=== PATIENT | male | born 1945 | race Caucasian/White ===

== ENCOUNTER 2016-12-23 09:38 | Inpatient (IN) | payer OTHER ==
[2016-12-08 14:58] VITALS: BMI 32.0
--- NOTE | 2016-12-08 15:37 | PAT Medication Instructions ---
Service Date Dec 08, 2016. Current Home Medication List Aspirin (Aspirin Ec), 325 MG PO HS Aspirin (Aspirin Ec), 81 MG PO HS Atorvastatin (Lipitor), 1 TAB PO HS Cholecalciferol (Vitamin D3), 1 TAB PO HS Metoprolol Succinate (Toprol Xl), 1 TAB PO HS Nitroglycerin (Nitrostat), 1 TAB SL UD Medication Instructions For Your Scheduled Surgery - Continue as directed: Nitroglycerin (Nitrostat), 1 TAB SL UD - Hold the following medications 10 days prior to surgery: Aspirin (Aspirin Ec), 325 MG PO HS Aspirin (Aspirin Ec), 81 MG PO HS - Take the following medications as scheduled the night before surgery: Atorvastatin (Lipitor), 1 TAB PO HS Cholecalciferol (Vitamin D3), 1 TAB PO HS Metoprolol Succinate (Toprol Xl), 1 TAB PO HS Nothing to eat or drink after midnight. No chewing after midnight If you have any questions please call us at [phone] or [phone] or [phone]
[2016-12-08 16:55] LABS: URINE APPEARANCE CLEAR (CLEAR); URINE BILIRUBIN NEG (NEG); URINE COLOR YELLOW; URINE NITRITE NEG (NEG); URINE SPECIFIC GRAVITY 1.008 (1.000-1.030); UROBILINOGEN NEG (NEG)
[2016-12-08 17:13] LABS: MANUAL MICROSCOPIC REQUIRED? NO; REVIEW REQ? NO
[2016-12-23] VITALS (7 sets, daily range): BP systolic 105–132; BP diastolic 74–91; PULSE 61–89; TEMP 36.4–36.6; O2SAT 91–98; Ht 177.8 cm; Wt 102.2 kg
[~2016-12-23] VITALS: Ht 177.8 cm; Wt 102.2 kg
[~2016-12-23 09:38] MED LIST: ASPI325T39 PO; ASPI81TA28 PO; ATOR-22 PO; CHOL1000 PO; HEPARIN SOD 5000 UNIT/0.5 ML CARP SQ SCH; LACTATED RINGER'S 1000ML 1,000 ML IV SCH; METO1TAB31 PO; NTRGSL/4 SL; VANCOMYCIN 1GM/270ML NSS IV SCH
[2016-12-23] MEDS ORDERED: LACTATED RINGER'S 1000ML 1,000 ML IV PRN (12:11)
[2016-12-23] MEDS ORDERED: ONDANSETRON INJ 2 MG/ML 2 ML VIAL IV PRN ×2 (12:15→17:15)
--- NOTE | 2016-12-23 12:52 | History & Physical Bridge Note ---
H&P Re-Evaluation Bridge Note: I have examined the patient, reviewed the History & Physical and in the interval since the performance of the History & Physical I have noted the following changes of clinical significance: No changes noted
[2016-12-23] MEDS ORDERED: BUPIVACAINE 0.5 % 5 MG/1 ML MPF 30ML VIAL ONE (13:14)
[2016-12-23] MEDS ORDERED: MIDAZOLAM HCL 1 MG/ML 2ML VIAL ONE (13:18)
[2016-12-23] MEDS ORDERED: FENTANYL CITRATE INJ 50 MCG/1 ML 2 ML VIAL ONE ×2 (13:18→14:22)
[2016-12-23] MEDS ORDERED: NEOSTIGMINE METHYLSULFATE 5 MG/5 ML SYR ONE (14:28)
[2016-12-23] MEDS ORDERED: GLYCOPYRROLATE INJ 0.2 MG/ML VIAL ONE ×2 (14:28→15:10)
[2016-12-23] MEDS ORDERED: ONDANSETRON INJ 2 MG/ML 2 ML VIAL ONE (14:28)
[2016-12-23] MEDS ORDERED: PROPOFOL IV EMULSION 10 MG/ML 20 ML VIAL IV ONE (14:28)
[2016-12-23] MEDS ORDERED: ROCURONIUM BROMIDE 10 MG/ML 5 ML VIAL ONE ×2 (14:28→15:09)
[2016-12-23] MEDS ORDERED: LIDOCAINE HCL 2% 2 ML VIAL (20MG/ML) ONE (14:28)
[2016-12-23] MEDS ORDERED: DEXAMETHASONE SOD INJ 4 MG/ML VIAL ONE (14:28)
[2016-12-23] MEDS ORDERED: MoRPHine SULFATE 2 MG/ML CARP ONE ×2 (14:59→16:19)
[2016-12-23] MEDS ORDERED: FLOSEAL HEMOSTATIC MATRIX 10ML TOP ONE (16:13)
[2016-12-23] MEDS: FENTANYL CITRATE INJ 50 MCG/1 ML 2 ML VIAL IV PRN ×4 (17:07→17:22)
[2016-12-23] MEDS ORDERED: DOCU-94 PO (17:11)
[2016-12-23] MEDS ORDERED: OXYC7.5T65 PO (17:11)
[2016-12-23] MEDS ORDERED: OXYB5TAB74 PO (17:11)
[2016-12-23] MEDS ORDERED: CIPR1TAB10 PO (17:11)
--- NOTE | 2016-12-23 17:14 | Discharge Instructions ---
Discharge Instructions Admission Reason for Admission: Prostate Cancer Discharge Discharge Diagnosis / Problem: Prostate Cancer Discharge Goals Goal(s): Decrease discomfort, Improve disease control, Improve nutritional status, Diagnostic testing, Therapeutic intervention Activity Recommendations Activity Limitations: per Instructions/Follow-up section Shower/Bathe: tomorrow . Instructions / Follow-Up Instructions / Follow-Up 1. Do not lift >15lbs x 6 weeks. 2. No heavy exercise x 6 weeks. You may engage in light activity such as walking and stairs as tolerated. 3. No sexual intercourse until cleared by Dr. Yan or Dr. Conklin. 4. Do not drive x [address] while taking narcotics. 5. Finish all of the antibiotic you have been prescribed. 6. Immediately call our office at [phone] if your catheter is removed for any reason. 7. Follow-up as scheduled. Please call our office at [phone] if you need to reschedule for any reason. . Current Hospital Diet Hospital Diet(s): Clear Liquid Diet Discharge Diet Recommended Diet: Regular Diet Procedures Procedures Performed: Robotic-assisted laparoscopic radical retropubic prostatectomy with bilateral pelvic lymph node dissection Pending Studies Studies pending at discharge: yes (Prostate pathology) List of pending studies: Prostate pathology Medical Emergencies . Who to Call and When: Medical Emergencies: If at any time you feel your situation is an emergency, please call 911 immediately. . Non-Emergent Contact Non-Emergency issues call your: Urologist Call Non-Emergent contact if: temperature is above 101.5, your pain is not controlled, your pain is worsening, your pain is unusual for you, your pain is concerning you, you have any medication questions . . "Provider Documentation" section prepared by Janeth Edwards. VTE Core Measure Inpt VTE Proph given/why not?: Unfractionated heparin SQ, SCD's [place] Drug Monitoring Program Search Results: patient reviewed within database, no issues identified
[2016-12-23] MEDS ORDERED: HYDROmorphone INJ 1 MG/ML SYR IV PRN (17:15)
[2016-12-23] MEDS ORDERED: OXYBUTYNIN CHLORIDE 5 MG TAB PO PRN (17:15)
[2016-12-23] MEDS ORDERED: NITROGLYCERIN 0.4 MG SL PER TAB CHARGE SL SCH (17:15)
[2016-12-23] MEDS ORDERED: OXYCODONE/ACETAMINOPHEN 7.5-325 TAB PO PRN (17:15)
[2016-12-23] MEDS ORDERED: KETOROLAC TROMETHAMINE 15 MG/ML VIAL IV PRN (17:15)
[2016-12-23] MEDS: MoRPHine SULFATE 10 MG/ML CARP/VIAL IV PRN ×2 (17:25→17:30)
--- NOTE | 2016-12-23 17:25 | Anesthesiology Progress Note ---
Anesthesia Post Op Note Date & Time Dec 23, 2016 at 17:25 Vital Signs Pain Intensity: 4 Vital Signs Past 12 Hours Date Time Temp Pulse Resp B/P Pulse Ox O2 Delivery O2 Flow Rate FiO2 12/23/16 17:24 Nasal Cannula 3 12/23/16 16:56 36.4 61 18 122/79 97 Mask 10 12/23/16 10:00 36.5 89 20 132/91 95 Room Air Notes Mental Status: alert / awake / arousable, participated in evaluation Pt Amnestic to Procedure: Yes Nausea / Vomiting: adequately controlled Pain: adequately controlled Airway Patency, RR, SpO2: stable & adequate BP & HR: stable & adequate Hydration State: stable & adequate Anesthetic Complications: no major complications apparent
[2016-12-23 17:33] LABS: MEAN CELL VOLUME 92.7 fL (80-100); MEAN PLATELET VOLUME 11.7 fL (7.4-10.4); PLATELET COUNT 148 K/uL (130-400); RED BLOOD COUNT 5.07 M/uL (4.7-6.1); WHITE BLOOD COUNT 7.99 K/uL (4.8-10.8)
[2016-12-23 17:34] LABS: MEAN CORPUSCULAR HGB CONC 34.5 g/dl (32-36)
[2016-12-23 18:07] LABS: BUN/CREATININE RATIO 13.4 (10-20); CALCIUM 8.6 mg/dl (8.5-10.1); CREATININE 1.1 mg/dl (0.60-1.40); POTASSIUM 4.3 mmol/L (3.5-5.1)
--- NOTE | 2016-12-23 18:11 | [facility] Post Operative Brief Note ---
Immediate Operative Summary Operative Date Dec 23, 2016. Pre-Operative Diagnosis Yonny 4+3 Prostate cancer Post-Operative Diagnosis Same as preop Procedure(s) Performed Robotic-assisted laparoscopic radical retropubic prostatectomy with bilateral pelvic lymph node dissection Surgeon Dr. Yan Coremaker Bench Surgeon(s) ROSANA Moreno Estimated Blood Loss 75 ml Findings Watertight anastomosis, L full nerve sparing, R partial Fluids (cc crystalloids) 1200 cc crystalloid Specimens c. right obturator lymph node d. left obturator lymph node-clip Drains 18 fr silicone reyes, 10 cc H2O, #10 EMMY LLQ Anesthesia GAET + local Complication(s) None Disposition Recovery Room / PACU
[2016-12-23 18:15] LABS: INR 1.1 (0.9-1.1); PARTIAL THROMBOPLASTIN RATIO 1.1
[2016-12-23] MEDS: LACTATED RINGER'S 1000ML 1,000 ML IV SCH (19:20)
[2016-12-23] MEDS: ACETAMINOPHEN 500 MG TAB PO SCH (19:21)
--- NOTE | 2016-12-23 19:35 | OPERATIVE REPORT ---
DATE OF OPERATION: 12/23/2016 PREOPERATIVE DIAGNOSIS: Upgraded clinical T1c, Yonny 4+3 adenocarcinoma previously Yonny 3+3 on active surveillance. POSTOPERATIVE DIAGNOSIS: Same. PROCEDURE: Robot-assisted laparoscopic radical retropubic prostatectomy with bilateral pelvic lymph node dissection. SURGEON: Dr. Apolinar Yan. DESKTOP SUPPORT SPECIALIST: ROSANA Gore. ANESTHESIA: General anesthesia with endotracheal intubation plus local at port sites. ESTIMATED BLOOD LOSS: 75 mL. FLUIDS: 1200 mL crystalloid. FINDINGS: Watertight anastomosis, left full nerve sparing dissection carried out right-sided partial nerve sparing dissection. SPECIMENS SENT TO PATHOLOGY: Periprostatic fat, prostate plus seminal vesicles, right obturator lymph nodes, left obturator lymph node with a clip present. DRAINS LEFT IN PLACE: Include an 18 [place] silicone Vail catheter to gravity drainage, 10 mL of sterile water in the balloon and a #10 EMMY drain in left lower quadrant. COMPLICATIONS: None. BRIEF HISTORY: Mr. Ewing is a 71-year-old male with a history of [place] 3+3 adenocarcinoma of the prostate upgraded to [place] 4+3 on his 1-year anniversary prostate biopsy. After discussion of risks and benefits of various forms of management, he has decided upon robotic prostatectomy to manage his disease. [facility] risk of lymph node involvement 7% and therefore lymph node dissection will be carried out. Seeing the right-sided involvement partial nerve sparing only will be considered on this side. Please see H\T\P for further details. Intravenous antibiotics and subcutaneous heparin provided for antibiotic coverage and DVT prophylaxis as well as SCDs. OPERATION AND FINDINGS: PROCEDURE: The patient was properly identified and brought to the operative suite after identification of appropriate consent on the chart, general anesthesia with endotracheal intubation was initiated and the patient was prepped and draped in standard fashion for this procedure. multimedia production assistant-out procedure was followed. All port sites were anesthetized with local prior to incision. Supraumbilical port was made and abdomen was entered under direct visualization using a visual obturator. Abdomen was insufflated to 15 mmHg and ports were placed for a 4th arm robotic template including two 7 mm left-sided robotic ports, a right-sided 7 mm robotic port and a 5 and 12 mm junior sales assistant port. The patient was placed in Trendelenburg and robot was brought in and docked. Normal intra-abdominal anatomy was appreciated. Bladder was dropped down to the level of the pubic bone and lateral attachments on both sides were freed. Prostate was defatted and fat was sent as periprostatic fat for pathologic analysis. Endopelvic fascia was sharply entered on both sides using hook cautery and dissection was carried out to the level of the apex. Dorsal vein was skeletonized and controlled using a 0 Vicryl suture on a CT1 needle. Nerve sparing dissection was commenced on the left hand side, identification of the neurovascular bundles. A partial nerve-sparing dissection definition of the anatomy was performed on the right hand side. A significant amount of apical adhesions at the prostate were appreciated as well. A 30 degree down lens was used to place the bladder neck on traction using the robotic fourth arm. Bladder neck was skeletonized down to the level of the Vail catheter and then divided. Vail catheter was used for anterior traction on the prostate gland. Posterior bladder neck was divided and dropped in the midline. Excellent tissue planes were appreciated. A posterior dissection was carried out until the vas deferens were encountered in the midline. These were circumscribed and divided and then used for traction. A 0 degree lens was replaced for better visualization. Seminal vesicles were dissected free in their entirety on both sides with vessels being controlled using monopolar and bipolar cautery as necessary. The Denonvilliers fascia was reincised using cold scissors and rectum was dropped in the midline up to the level of the apex. Prostatic pedicles were defined on both sides and controlled using cold clips. Again, a partial nerve-sparing dissection was carried out on the right hand side at the level of the apex with a full nerve sparing dissection being completed on the left. After this was complete dorsal vein was divided using hot scissors and urethra was skeletonized. Again, apical inflammatory changes were noted. Rectourethralis fibers were divided, prostate was delivered into the abdomen where it was placed within an EndoCatch bag for retrieval at the end of the case. Excellent hemostasis was appreciated in the prostatic bed. Rectum was insufflated under saline irrigation and noted to be free of injury. Rectal tube was removed and FloSeal was placed over the prostatic bed for additional hemostasis. Excellent aperture to the bladder neck was noted. Attention was then turned to the pelvic sidewall where obturator lymph node was carried out on both sides. Monopolar cautery and generous clips were used for control of the lymphatic vessels. Using the anatomic landmarks of the external iliac vein, pelvic sidewall and the obturator nerve, obturator dissections were carried out on both sides. Left-sided lymph node packet was marked using a clip for identification at the end of the case. The lymph node packets were placed within the second EndoCatch bag for retrieval. A FloSeal was placed within the obturator fossa on both sides. No evidence of any of injury to the nerve or pelvic vessels was noted. Attention was again turned to the pelvis where persistent excellent hemostasis was appreciated. Using a double armed V-Loc suture, circumferential running anastomosis of the bladder neck to the urethral stump was performed. This was noted to be excellent aperture and watertight after completion of closure. Vail was directly visualized entering the bladder prior to completion of the closure. Ten mL of sterile water were placed in the balloon and bladder was irrigated with greater than 150 mL of sterile irrigant and noted to be watertight. Deloit were removed and sponge and instrument counts were correct. Fourth arm was removed and a EMMY drain was placed in via the robotic fourth arm port. This was placed within the pelvis while avoiding placing it directly over the anastomosis. String to the EndoCatch bag was brought up through the supraumbilical port after replacing the camera via the junior sales assistant port. Robotic instruments were removed and robot was dedocked. The ports were removed and the supraumbilical port was enlarged sufficiently to allow for easy passage of the specimen bags. Fascia at the level of the supraumbilical incision was closed using an 0 Vicryl suture on a UR-5 needle. A 3-0 Vicryl was used for the subcutaneous tissues and Monocryl was used on all port sites safe for the drain which was secured in place using a 2-0 silk on the EMMY drain. Excess carbon dioxide gas had been removed from the abdomen prior to completion of closure. Anesthesia was reversed. The patient was transferred to recovery room in stable condition. FOLLOW-UP CARE: The patient will be admitted to telemetry seeing his cardiac history for standard postoperative management. I attest to the content of the Intraoperative Record and any orders documented therein. Any exceptions are noted below. BERTHA
[2016-12-23] MEDS: CLINDAMYCIN IV 600 MG in DEXTROSE 5% ADD-VANTAGE 50ML 50 ML IV SCH (20:09)
[2016-12-23] MEDS: DOCUSATE SODIUM 100 MG CAP PO SCH (20:11)
[2016-12-23] MEDS ORDERED: ASPIRIN 81 MG ECTAB PO SCH (21:00)
[2016-12-23] MEDS ORDERED: METOPROLOL SUCC 25MG EXT REL TAB PO SCH (21:00)
[2016-12-23] MEDS ORDERED: ATORVASTATIN 20 MG TAB PO SCH (21:00)
[2016-12-23] MEDS ORDERED: CHOLECALCIFEROL 1000 INTER.UNIT TAB PO SCH (21:00)
[2016-12-23] MEDS: HEPARIN SOD 5000 UNIT/0.5 ML CARP SQ SCH (22:07)
[2016-12-24] VITALS (7 sets, daily range): BP systolic 119–130; BP diastolic 73–82; PULSE 65–81; TEMP 36.4–36.6; O2SAT 91–97
[2016-12-24] MEDS: ACETAMINOPHEN 500 MG TAB PO SCH ×3 (00:34→12:13)
[2016-12-24] MEDS: LACTATED RINGER'S 1000ML 1,000 ML IV SCH (03:49)
[2016-12-24] MEDS: CLINDAMYCIN IV 600 MG in DEXTROSE 5% ADD-VANTAGE 50ML 50 ML IV SCH ×2 (03:49→12:13)
[2016-12-24 05:45] LABS: BASO % 0.1 %; BASO ABS # 0.01 K/uL (0-0.2); COMPLETE YES; HEMATOCRIT 42.4 % (42-52); IG% 0.3 %; LYMPH % 10.7 %; MEAN CELL VOLUME 91.4 fL (80-100); MEAN CORPUSCULAR HEMOGLOBIN 30.8 pg (25-34); MEAN CORPUSCULAR HGB CONC 33.7 g/dl (32-36); MEAN PLATELET VOLUME 11.6 fL (7.4-10.4); MONO % 9.8 %; NEUT % 79.1 %; PLATELET COUNT 149 K/uL (130-400); RED BLOOD COUNT 4.64 M/uL (4.7-6.1); WHITE BLOOD COUNT 9.37 K/uL (4.8-10.8)
[2016-12-24 06:24] LABS: BUN/CREATININE RATIO 15.9 (10-20); CALCIUM 8.5 mg/dl (8.5-10.1); CREATININE 0.88 mg/dl (0.60-1.40); POTASSIUM 4.5 mmol/L (3.5-5.1)
[2016-12-24] MEDS: DOCUSATE SODIUM 100 MG CAP PO SCH (07:45)
[2016-12-24] MEDS: HEPARIN SOD 5000 UNIT/0.5 ML CARP SQ SCH (07:47)
--- NOTE | 2016-12-24 08:52 | Progress Note ---
Subjective Date of Service: Dec 24, 2016. Subjective Pt evaluation today including: conversation w/ patient, physical exam, chart review, lab review, review of inpatient medication list Pain: Controlled, incisional PO Intake: Yonis clear Voiding: reyes catheter in place (urine clearing) 71 yo male POD#1 s/p RALRP, BPLND on telemetry due to cardiac history. No OOB yet despite orders, yonis clears, comfortable and in good spirits this AM. No new complaints. Labwork reviewed. Review of Systems Constitutional: No chills, No fever Eyes: No worsening of vision ENT: No hearing loss, No unusual epistaxis Respiratory: No shortness of breath, No sputum, No wheezing Cardiac: No chest pain Abdomen: + pain, No nausea, No vomiting Male : + hematuria (resolving) Neurologic: No memory loss, No paralysis Psychiatric: No depression symptoms Endo: No fatigue Skin: No rash Objective Vital Signs Date Time Temp Pulse Resp B/P Pulse Ox O2 Delivery O2 Flow Rate FiO2 12/24/16 08:00 97 Room Air 12/24/16 07:30 36.6 70 20 130/82 91 Room Air 12/24/16 04:00 Room Air 12/24/16 03:48 36.5 65 18 119/73 91 Room Air 12/24/16 00:00 92 Room Air 12/23/16 23:48 36.5 70 18 105/74 91 Room Air 12/23/16 20:00 92 Room Air 12/23/16 19:44 36.4 66 18 126/83 98 Nasal Cannula 4.0 12/23/16 19:00 36.4 66 16 126/82 98 Nasal Cannula 3.0 12/23/16 18:00 62 16 125/77 95 Nasal Cannula 4.0 12/23/16 17:50 36.6 61 16 125/78 95 4.0 12/23/16 17:33 36.5 114/74 12/23/16 17:31 66 16 12/23/16 17:31 68 16 96 12/23/16 17:28 127/80 12/23/16 17:26 60 15 12/23/16 17:26 60 15 95 12/23/16 17:24 Nasal Cannula 3 12/23/16 17:23 119/80 12/23/16 17:21 61 16 12/23/16 17:21 60 16 130/79 97 12/23/16 17:16 62 16 100 12/23/16 17:16 61 16 12/23/16 17:13 129/81 12/23/16 17:11 62 17 12/23/16 17:11 64 17 98 12/23/16 17:08 134/83 12/23/16 17:06 62 18 98 12/23/16 17:06 62 18 12/23/16 17:03 133/76 12/23/16 17:01 64 16 98 12/23/16 17:01 64 16 12/23/16 16:57 122/79 12/23/16 16:56 36.4 61 18 122/79 97 Mask 10 12/23/16 10:00 36.5 89 20 132/91 95 Room Air Physical Exam General Appearance: WD/WN, no apparent distress ENT: hearing grossly normal Neck: supple, no adenopathy Respiratory/Chest: no respiratory distress, no accessory muscle use Cardiovascular: no JVD Abdomen: non tender, soft, + pertinent finding (inc c/d/i, EMMY in place, serosang) Extremities: non-tender Neurologic/Psychiatric: alert, oriented x 3 Skin: normal color Laboratory Results Last 24 Hours Test 12/23/16 17:20 12/24/16 05:23 White Blood Count 7.99 K/uL 9.37 K/uL Red Blood Count 5.07 M/uL 4.64 M/uL Hemoglobin 16.2 g/dL 14.3 g/dL Hematocrit 47.0 % 42.4 % Mean Corpuscular Volume 92.7 fL 91.4 fL Mean Corpuscular Hemoglobin 32.0 pg 30.8 pg Mean Corpuscular Hemoglobin Concent 34.5 g/dl 33.7 g/dl RDW Standard Deviation 43.8 fL 43.0 fL RDW Coefficient of Variation 13.0 % 12.9 % Platelet Count 148 K/uL 149 K/uL Mean Platelet Volume 11.7 fL 11.6 fL Prothrombin Time 12.0 SECONDS Prothromb Time International Ratio 1.1 Activated Partial Thromboplast Time 28.0 SECONDS Partial Thromboplastin Ratio 1.1 Sodium Level 143 mmol/L 140 mmol/L Potassium Level 4.3 mmol/L 4.5 mmol/L Chloride Level 110 mmol/L 106 mmol/L Carbon Dioxide Level 26 mmol/L 27 mmol/L Anion Gap 7.0 mmol/L 7.0 mmol/L Blood Urea Nitrogen 15 mg/dl 14 mg/dl Creatinine 1.10 mg/dl 0.88 mg/dl Est Creatinine Clear Calc Drug Dose 75.4 ml/min 94.2 ml/min Estimated GFR () 79.0 101.6 Estimated GFR (Non- 68.1 87.6 BUN/Creatinine Ratio 13.4 15.9 Random Glucose 114 mg/dl 97 mg/dl Calcium Level 8.6 mg/dl 8.5 mg/dl Neutrophils (%) (Auto) 79.1 % Lymphocytes (%) (Auto) 10.7 % Monocytes (%) (Auto) 9.8 % Eosinophils (%) (Auto) 0.0 % Basophils (%) (Auto) 0.1 % Neutrophils # (Auto) 7.41 K/uL Lymphocytes # (Auto) 1.00 K/uL Monocytes # (Auto) 0.92 K/uL Eosinophils # (Auto) 0.00 K/uL Basophils # (Auto) 0.01 K/uL Immature Granulocyte % (Auto) 0.3 % Immature Granulocyte # (Auto) 0.03 K/uL Assessment and Plan A/P 71 yo male POD#1 s/p RALRP, BPLND, doing well. Increase diet and activity today Reyes training, DC IVF later in day Anticipate DC home after lunch, DC EMMY prior to DC home DC instructions reviewed, Rx in chart Discharge planning: home
--- NOTE | 2017-01-03 12:04 | DISCHARGE SUMMARY ---
ADMITTING DIAGNOSIS: Prostate cancer. DISCHARGE DIAGNOSIS: Same. PROCEDURES OVER THE COURSE OF ADMISSION: Include a robot-assisted radical prostatectomy with bilateral pelvic lymph node dissection on 12/23/2016. ADMITTING ATTENDING: Dr. Apolinar Yan. BRIEF HISTORY: Mr. Ewing is a pleasant 71-year-old male who I have seen as an outpatient for history of prostate cancer. After discussion of risks and benefits of various forms of intervention, he has decided upon a robotic prostatectomy to manage his disease. His initial Yonny grade was 4+3. Please see H\T\P for further details. The patient is being admitted for the purpose of his surgery. HOSPITAL COURSE: The patient was admitted on 12/23/2016 after uncomplicated robotic prostatectomy. Please see his operative report for further details. Postoperatively, the patient was admitted to the floor and diet and activity were rapidly advanced. Lab work remained within normal limits with no significant difficulties. By postoperative day #1, the patient was ambulatory in the hallways, tolerating regular diet and considered stable for discharge home with a Vail catheter in place. EMMY drain was removed prior to discharge home. DISCHARGE INSTRUCTIONS: Please see discharge instruction sheet for limitations and medication list. Discharge appointments are confirmed. The patient was instructed to contact our service should he note any fevers, chills, nausea, vomiting or other significant difficulties in the postoperative period. BERTHA
== END 2016-12-24 14:00 | disposition home or self-care (01) | DRG 708 ==
LOC: ENRESERVTM → ENRESERVDT → C.ACU 09:38 → C.2T 17:08
PROVIDERS: ADMIT Urology; ATTEND Urology
PROC: 0VT04ZZ Resection of Prostate, Percutaneous Endoscopic Approach (ICD-10-PCS; principal; 2016-12-23 11:45)
PROC: 0VT34ZZ Resection of Bilateral Seminal Vesicles, Percutaneous Endoscopic Approach (ICD-10-PCS; principal; 2016-12-23 11:45)
PROC: 07BC4ZX Excision of Pelvis Lymphatic, Percutaneous Endoscopic Approach, Diagnostic (ICD-10-PCS; principal; 2016-12-23 11:45)
PROC: 8E0W4CZ Robotic Assisted Procedure of Trunk Region, Percutaneous Endoscopic Approach (ICD-10-PCS; principal; 2016-12-23 11:45)
DX: C61 Malignant neoplasm of prostate (principal); E27.8 Other specified disorders of adrenal gland; I25.10 Atherosclerotic heart disease of native coronary artery without angina pectoris; I10 Essential (primary) hypertension; E78.00 Pure hypercholesterolemia, unspecified; E78.5 Hyperlipidemia, unspecified; N40.0 Benign prostatic hyperplasia without lower urinary tract symptoms; I25.2 Old myocardial infarction; E66.9 Obesity, unspecified; Z68.32 Body mass index [BMI] 32.0-32.9, adult; Z87.891 Personal history of nicotine dependence; Z95.5 Presence of coronary angioplasty implant and graft; Z79.82 Long term (current) use of aspirin; Z79.899 Other long term (current) drug therapy

== ENCOUNTER 2017-01-03 00:55 | Emergency (ER) | payer OTHER ==
[~2017-01-03] VITALS: Ht 177.8 cm; Wt 97.5 kg
[~2017-01-03 00:55] MED LIST changes: -ASPI325T39 PO; +CIPR1TAB10 PO; +DOCU-94 PO; -HEPARIN SOD 5000 UNIT/0.5 ML CARP SQ SCH; -LACTATED RINGER'S 1000ML 1,000 ML IV SCH; +OXYB5TAB74 PO; +OXYC7.5T65 PO; -VANCOMYCIN 1GM/270ML NSS IV SCH
[2017-01-03 01:02] VITALS: Ht 177.8 cm; Wt 97.5 kg
[2017-01-03] MEDS ORDERED: SODIUM CHLORIDE 0.9% 1000ML 1,000 ML IV STA (01:24)
[2017-01-03] MEDS ORDERED: SODIUM CHLORIDE 0.9% 250ML 250 ML IV STA (01:24)
[2017-01-03 01:53] LABS: BASO % 0.3 %; BASO ABS # 0.03 K/uL (0-0.2); COMPLETE YES; EOS % 0.6 %; HEMATOCRIT 44.3 % (42-52); IG% 0.3 %; LYMPH % 10.4 %; LYMPH ABS # 1.03 K/uL (1.2-3.4); MEAN CELL VOLUME 89.1 fL (80-100); MEAN CORPUSCULAR HEMOGLOBIN 31.4 pg (25-34); MEAN CORPUSCULAR HGB CONC 35.2 g/dl (32-36); MEAN PLATELET VOLUME 10.4 fL (7.4-10.4); MONO % 12.4 %; PLATELET COUNT 211 K/uL (130-400); RED BLOOD COUNT 4.97 M/uL (4.7-6.1); WHITE BLOOD COUNT 9.88 K/uL (4.8-10.8)
[2017-01-03 01:55] LABS: MANUAL MICROSCOPIC REQUIRED? NO; REVIEW REQ? NO; URINE APPEARANCE CLEAR (CLEAR); URINE BILIRUBIN NEG (NEG); URINE COLOR YELLOW; URINE NITRITE NEG (NEG); URINE SPECIFIC GRAVITY 1.017 (1.000-1.030); UROBILINOGEN NEG (NEG); ZZURINE CULT IF INDIC CATH NO
[2017-01-03 02:06] LABS: INR 1.1 (0.9-1.1); PROTHROMBIN TIME (PATIENT) 12.3 SECONDS (9.0-12.0)
[2017-01-03 02:07] LABS: CHLORIDE 104 mmol/L (98-107); POTASSIUM 3.9 mmol/L (3.5-5.1); SODIUM 140 mmol/L (136-145)
[2017-01-03 02:12] LABS: ALT/SGPT 44 U/L (12-78); AST/SGOT 30 U/L (15-37); BLOOD UREA NITROGEN 13 mg/dl (7-18); BUN/CREATININE RATIO 13.8 (10-20); CARBON DIOXIDE 23 mmol/L (21-32); CREATININE 0.94 mg/dl (0.60-1.40); GLUCOSE 109 mg/dl (70-99)
[2017-01-03] MEDS ORDERED: OXYB5TAB PO (02:12)
--- NOTE | 2017-01-03 02:15 | EMERGENCY ROOM VISIT NOTE ---
History Report prepared by Jamie: Hernan Johnson Under the Supervision of: Dr. Aline Beltrán M.D. First contact with patient: :22 Chief Complaint: FEVER Stated Complaint: FEVER History of Present Illness The patient is a 71 year old male who presents to the Emergency Room with complaints of a persistent fever that began at 2200 this evening, 4 hours prior to arrival. The patient states that he began to experience chills at 1030 before his fevers began. At 2200 his temperature was 101.1, which worsened to 101.6 at 2230. He had a total prostatectomy performed on December 16, 18 days prior to this visit. The patient has had a catheter placed since the surgery. He is also complaining of some burning around the tip of his penis since the catheter has been in. He denies any shortness of breath or abdominal pain. Source of History: patient Onset: 4 hours SANE RN Position: other (Global) Quality: other (Fever) Timing: other (Persistent) Associated Symptoms: + chills Review of Systems See HPI for pertinent positives & negatives. A total of 10 systems reviewed and were otherwise negative. Past Medical & Surgical CAD (coronary artery disease) Hypercholesteremia Prostate cancer Family History Cancer Social History Smoking Status: Never Smoker Drug Use: none Marital Status: Housing Status: lives with significant other Occupation Status: retired Current/Historical Medications Scheduled Aspirin (Aspirin Ec), 81 MG PO HS Atorvastatin (Lipitor), 20 MG PO HS Azithromycin (Azithromycin), 250 MG PO DAILY Cefdinir (Omnicef), 300 MG PO Q12H Cholecalciferol (Vitamin D3), 1,000 UNIT PO HS Ciprofloxacin Hcl (Cipro), 500 MG PO BID Metoprolol Succinate (Toprol Xl), 1 TAB PO HS Scheduled PRN Albuterol Hfa (Ventolin Hfa), 2-4 PUFFS INH Q4H PRN for wheezing Docusate Sodium (Colace), 1 CAP PO BID PRN for Constipation Nitroglycerin (Nitrostat), 1 TAB SL UD PRN for Chest Pain Oxybutynin Chloride (Oxybutynin Chloride Er), 1 TAB PO Q8 PRN for SPASMS Allergies Coded Allergies: Oxycodone (Verified Allergy, Unknown, FACE NUMB..JUST FELT WEIRD, 01/03/17) PATIENT DOES NOT WANT TO TAKE PERCOCET ANYMORE Penicillins (Verified Allergy, Unknown, HIVES, FAINTED, 01/03/17) Physical Exam Vital Signs Date Time Temp Pulse Resp B/P Pulse Ox O2 Delivery O2 Flow Rate FiO2 01/03/17 07:46 89 134/89 94 01/03/17 06:53 86 143/90 95 01/03/17 06:52 101 01/03/17 05:09 90 01/03/17 04:57 36.9 92 20 112/87 94 Room Air 01/03/17 03:26 100 20 133/88 93 Room Air 01/03/17 02:40 102 18 139/89 96 Room Air 01/03/17 02:00 107 01/03/17 01:02 36.6 130 18 130/82 94 Room Air Physical Exam Vital signs reviewed. General: Well-appearing elderly male, in no significant distress. HEENT: No scleral icterus, PERRLA, neck supple. Atraumatic. Cardiovascular: Tachycardiac rate with normal rhythm, no extra sounds. Pulmonary: Faint crackles at the bases that clear with coughing, normal work of breathing. Abdomen: Soft, nontender, nondistended, positive bowel sounds. Musculoskeletal: Atraumatic, no peripheral edema. Neurologic: Patient awake alert and oriented x 3, full strength in all 4 extremities. Cranial nerves 2 through 12 grossly intact. Skin: Warm, dry, no rash Genitourinary: Vail catheter is in place within a circumcised penis. There is erythema surrounding the glands and the right side of the scrotum. No discharge , no drainage, no open lesions. Medical Decision & Procedures ER Provider Diagnostic Interpretation: X-ray results as stated below per my interpretation and radiologist interpretation. Other radiology results as stated below per my review and radiologist interpretation: CTA CHEST: No evidence of pulmonary embolism or aortic dissection. Posterior right upper lobe infiltrate/consolidation. Correlate clinically for an infectious process. Mild peribronchial thickening. Small pulmonary nodules, most of which are calcified. No pneumothorax or pleural effusion. 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 Small mediastinal and hilar lymph nodes. Small hiatal hernia. Bilateral adrenal nodules, the largest in the left adrenal gland measuring 3cm. Small hepatic hypodensity. Atherosclerotic disease. Prior cholecystectomy. Radiologist: Toshia Montes De Oca M.D. Laboratory Results 01/03/17 01:40 Red Blood Count 4.97, Mean Corpuscular Volume 89.1, Mean Corpuscular Hemoglobin 31.4, Mean Corpuscular Hemoglobin Concent 35.2, Mean Platelet Volume 10.4, Neutrophils (%) (Auto) 76.0, Lymphocytes (%) (Auto) 10.4, Monocytes (%) (Auto) 12.4, Eosinophils (%) (Auto) 0.6, Basophils (%) (Auto) 0.3, Neutrophils # (Auto ) 7.50, Lymphocytes # (Auto) 1.03, Monocytes # (Auto) 1.23, Eosinophils # (Auto ) 0.06, Basophils # (Auto) 0.03 01/03/17 01:40 Test 01/03/17 01:40 01/03/17 01:47 01/03/17 02:56 White Blood Count 9.88 K/uL (4.8-10.8) Red Blood Count 4.97 M/uL (4.7-6.1) Hemoglobin 15.6 g/dL (14.0-18.0) Hematocrit 44.3 % (42-52) Mean Corpuscular Volume 89.1 fL (80-100) Mean Corpuscular Hemoglobin 31.4 pg (25-34) Mean Corpuscular Hemoglobin Concent 35.2 g/dl (32-36) Platelet Count 211 K/uL (130-400) Mean Platelet Volume 10.4 fL (7.4-10.4) Neutrophils (%) (Auto) 76.0 % Lymphocytes (%) (Auto) 10.4 % Monocytes (%) (Auto) 12.4 % Eosinophils (%) (Auto) 0.6 % Basophils (%) (Auto) 0.3 % Neutrophils # (Auto) 7.50 K/uL (1.4-6.5) Lymphocytes # (Auto) 1.03 K/uL (1.2-3.4) Monocytes # (Auto) 1.23 K/uL (0.11-0.59) Eosinophils # (Auto) 0.06 K/uL (0-0.5) Basophils # (Auto) 0.03 K/uL (0-0.2) RDW Standard Deviation 41.6 fL (36.4-46.3) RDW Coefficient of Variation 12.9 % (11.5-14.5) Immature Granulocyte % (Auto) 0.3 % Immature Granulocyte # (Auto) 0.03 K/uL (0.00-0.02) Prothrombin Time 12.3 SECONDS (9.0-12.0) Prothromb Time International Ratio 1.1 (0.9-1.1) Activated Partial Thromboplast Time 27.0 SECONDS (21.0-31.0) Partial Thromboplastin Ratio 1.0 Urine Color YELLOW Urine Appearance CLEAR (CLEAR) Urine pH 5.0 (4.5-7.5) Urine Specific [place] 1.017 (1.000-1.030) Urine Protein 1+ (NEG) Urine Glucose (UA) NEG (NEG) Urine Ketones NEG (NEG) Urine Occult Blood 3+ (NEG) Urine Nitrite NEG (NEG) Urine Bilirubin NEG (NEG) Urine Urobilinogen NEG (NEG) Urine Leukocyte Esterase TRACE (NEG) Urine WBC (Auto) 1-5 /hpf (0-5) Urine RBC (Auto) >30 /hpf (0-4) Urine Hyaline Casts (Auto) 1-5 /lpf (0-5) Urine Epithelial Cells (Auto) 5-10 /lpf (0-5) Urine Bacteria (Auto) NEG (NEG) Anion Gap 13.0 mmol/L (3-11) Est Creatinine Clear Calc Drug Dose 86.9 ml/min Estimated GFR () 95.5 Estimated GFR (Non- 82.4 BUN/Creatinine Ratio 13.8 (10-20) Calcium Level 9.0 mg/dl (8.5-10.1) Magnesium Level 2.0 mg/dl (1.8-2.4) Total Bilirubin 1.0 mg/dl (0.2-1) Direct Bilirubin 0.2 mg/dl (0-0.2) Aspartate Amino Transf (AST/SGOT) 30 U/L (15-37) Alanine Aminotransferase (ALT/SGPT) 44 U/L (12-78) Alkaline Phosphatase 67 U/L (45-117) Total Creatine Kinase 38 U/L (39-308) Creatine Kinase MB < 0.5 ng/ml (0.5-3.6) Creatine Kinase MB Ratio (0-3.0) Troponin I < 0.015 ng/ml (0-0.045) Total Protein 7.5 gm/dl (6.4-8.2) Albumin 3.1 gm/dl (3.4-5.0) Bedside Lactic Acid Venous 1.44 mmol/L (0.90-1.70) Influenza Type A (RT-PCR) Neg for Influ A (NEG) Influenza Type A Antigen Neg for Influ A (NEG) Influenza Type B Antigen Neg for Influ B (NEG) Influenza Type B (RT-PCR) Neg for Influ B (NEG) Laboratory results per my review. Medications Administered Medications (Trade) Dose Ordered Sig/Brian Route Start Time Stop Time Status Last Admin Dose Admin Sodium Chloride 250 ml @ 999 mls/hr Q16M STAT IV 01/03/17 01:24 01/03/17 01:39 DC 01/03/17 01:24 999 MLS/HR Sodium Chloride (Nss 1000ml) 1,000 ml @ 125 mls/hr Q8H STAT IV 01/03/17 01:24 01/03/17 09:23 DC 01/03/17 01:24 125 MLS/HR Ceftriaxone Sodium 1 gm 1 gm NOW STAT IV 01/03/17 04:42 01/03/17 04:45 DC 01/03/17 04:50 1 GM Azithromycin/ Dextrose (Zithromax IV/D5 250ml) 255 ml @ 125 mls/hr NOW STAT IV 01/03/17 04:45 01/03/17 06:47 DC 01/03/17 05:19 125 MLS/HR ED Course 0124: Ordered Sodium Chloride 1000 mL @ 125 mL/hr IV, Sodium Chloride 250 mL @ 999 mL/hr IV. 0152: Past medical records reviewed. The patient was evaluated in room B12. A complete history and physical examination was performed. 0442: Ordered Rocephin 1 gm IV. 0445: Ordered Azithromycin 500 mg 225 mL @ 125 mL/hr IV. 0552: Upon reevaluation, the patient appeared to have improvement of his symptoms. I discussed findings with him. he verbalized agreement of the treatment plan. The patient was discharged home. Medical Decision Differential diagnosis: Etiologies such as viral syndrome, otitis, pulmonary embolism, pharyngitis, pneumonia, influenza, meningitis, urinary tract infection, sepsis, bacteremia, as well as others were entertained. This pt was evaluated and appeared to be in no distress. IV access was obtained and lab work was drawn. Pt was places on the cardiac monitor technician. Blood cultures were performed. Pt was hydrated with NSS d/t elevated HR. He was afebrile here. Influenza swab is negative, UA is significant for blood. CXR is concerning for a small PNA, although the pt has remained tachycardic and borderline hypoxic. A chest CT was performed to r/o PE, this study is significant for a small PNA. Pt has been on cipro since surgery and has one day left. He was advised to stop this medication and start omnicef and azithrmycin as prescribed. He was given a dose of IV ceftriaxone and azithromycin IV in ED and d/c to the care of his . He will f.u with urology in 2 days as scheduled and PCP for reevaluation this week. He will return to the ED for worsening of symptoms or any medical concerns. Impression Primary Impression: Pneumonia Scribe Attestation The scribe's documentation has been prepared under my direction and personally reviewed by me in its entirety. I confirm that the note above accurately reflects all work, treatment, procedures, and medical decision making performed by me. Departure Information Dispostion Home / Self-Care Prescriptions Albuterol Hfa (VENTOLIN HFA) 200 Puffs/39517 Mcg Aers 2-4 PUFFS INH Q4H Y for wheezing, #1 INHALER Prov: Aline Beltrán M.D. 01/03/17 Azithromycin (Azithromycin) 250 Mg Tab 250 MG PO DAILY for 4 Days, #4 TAB Prov: Aline Beltrán M.D. 01/03/17 Cefdinir (Omnicef) 300 Mg Cap 300 MG PO Q12H, #14 CAP Prov: Aline Beltrán M.D. 01/03/17 Referrals No Doctor, Assigned (PCP) Forms HOME CARE DOCUMENTATION FORM, IMPORTANT VISIT INFORMATION Patient Instructions My [facility] Additional Instructions Diagnosis: Pneumonia Stop the Cipro. Azithromycin 250 mg daily for 4 more days, start tomorrow. Omnicef 300 mg twice daily for 7 days. Albuterol 2 puffs every 4 hours as needed for wheezing or cough. Tylenol 650 mg every 6 hours as needed for pain or fever. Follow-up with Dr. Yan in 2 days as scheduled for reevaluation. Follow-up with your primary care physician this week for reevaluation. Return to the emergency department for worsening of symptoms or any medical concerns. Problem Qualifiers Primary Impression: Pneumonia Pneumonia type: due to unspecified organism Laterality: right Lung location : upper lobe of lung Qualified Codes: J18.1 - Lobar pneumonia, unspecified organism
[2017-01-03 02:18] LABS: ALKALINE PHOSPHATASE 67 U/L (45-117)
[2017-01-03] MEDS ORDERED: OPTIRAY 320 IV PRN (04:15)
[2017-01-03] MEDS ORDERED: CEFTRIAXONE SOD INJ 1 GM ADDVIAL IV STA (04:42)
[2017-01-03] MEDS ORDERED: AZITHROMYCIN IV 500 MG in DEXTROSE 5% 250ML 250 ML IV STA (04:45)
[2017-01-03 04:57] VITALS: TEMP 36.9
[2017-01-03 05:08] LABS: INFLUENZA A PCR Neg for Influ A (NEG); INFLUENZA B PCR Neg for Influ B (NEG)
[2017-01-03] MEDS ORDERED: CEFD1CAP14 PO (05:50)
[2017-01-03] MEDS ORDERED: ZTHM250 PO (05:50)
[2017-01-03] MEDS ORDERED: VNTHFA/IN INH (05:51)
--- NOTE | 2017-01-03 06:52 | DIAGNOSTIC IMAGING REPORT ---
CHEST ONE VIEW PORTABLE CLINICAL HISTORY: post op fever COMPARISON STUDY: No previous studies for comparison. FINDINGS: The heart is the upper limits of normal in size. There is prominence of the right superior hilar region. A nodule versus area of focal pulmonary consolidation is suspected. Follow-up is recommended. There is no failure. There are no pleural effusions.[ IMPRESSION: Right superior hilar nodule versus area of focal pulmonary consolidation. Radiographic follow-up is recommended. Electronically signed by: Tommy Chanel M.D. 01/03/2017 6:51 AM Dictated Date/Time: 01/03/2017 6:49 AM
--- NOTE | 2017-01-03 07:41 | DIAGNOSTIC IMAGING REPORT ---
CT ANGIOGRAPHY OF THE CHEST, PULMONARY EMBOLUS PROTOCOL CLINICAL HISTORY: Fever. Evaluate for pulmonary emboli. COMPARISON STUDY: Chest radiograph January 03, 2017. TECHNIQUE: Following IV administration of 92 mL of Optiray-320, helical axial images of the chest were obtained utilizing the pulmonary embolus protocol. Maximal intensity projections and sagittal and coronal reformats were viewed on an independent 3D workstation. IV contrast was administered without complication. CT DOSE: 597.30 mGy.cm FINDINGS: No pulmonary emboli are identified. The heart is mildly enlarged. There is mild dilatation of the ascending aorta which measures 4.1 cm. There is no pericardial effusion. An enlarged right hilar lymph node measures 1.5 cm in short axis diameter. There is moderate emphysema. Note is made of a 1.9 cm irregular opacity within the posterior segment of the right upper lobe with adjacent groundglass opacity. There is no pneumothorax or pleural effusion. A few noncalcified pulmonary nodules are noted, the largest of which is a 5 mm right middle lobe nodule shown on image 145 of 326. Visualized portions the upper abdomen demonstrate stable bilateral adrenal nodules consistent with adenomas. A right hepatic lobe lesion is unchanged since prior MRI. This represents a hemangioma, shown on prior study. There is a small hiatal hernia. IMPRESSION: 1. No pulmonary emboli identified. 2. 1.9 cm irregular right upper lobe opacity with adjacent ground glass opacity which suggests a small area of pneumonia. A neoplastic process is considered less likely although a follow-up chest CT in one month to ensure resolution is recommended. 3. Mild right hilar lymphadenopathy which is likely reactive but should be assessed on subsequent CT. 4. Moderate emphysema. 5. Mild dilatation of the ascending aorta. Electronically signed by: Checo Edge M.D. 01/03/2017 7:40 AM Dictated Date/Time: 01/03/2017 7:30 AM
[2017-01-03 07:46] VITALS: BP 134/89; PULSE 89; O2SAT 94
== END 2017-01-03 07:47 | disposition home or self-care (01) ==
LOC: C.EDB 00:56
DX: J18.1 Lobar pneumonia, unspecified organism (principal); I25.10 Atherosclerotic heart disease of native coronary artery without angina pectoris; E78.00 Pure hypercholesterolemia, unspecified; Z85.46 Personal history of malignant neoplasm of prostate; Z79.82 Long term (current) use of aspirin

== ENCOUNTER → 2017-02-14 | Outpatient (CLI) | payer OTHER ==
[~2017-02-14] MED LIST changes: +AZIT-57 PO; +CEFD1CAP14 PO; -DOCU-94 PO; +METO-478 PO; -METO1TAB31 PO; +OXYB5TAB PO; -OXYB5TAB74 PO; -OXYC7.5T65 PO; +VNTHFA/IN INH
[2017-02-14 10:57] LABS: BLOOD UREA NITROGEN 14 mg/dl (7-18); BUN/CREATININE RATIO 16.7 (10-20); CREATININE 0.85 mg/dl (0.60-1.40)
[2017-02-14 11:01] LABS: PROSTATE SPECIFIC ANTIGEN < 0.010 ng/ml (0.000-4.000)
--- NOTE | 2017-02-18 12:42 | CODING QUERY MEDICAL NECESSITY ---
SUPPORTING DIAGNOSIS NEEDED A supporting diagnosis is required for the test/procedure performed on this patient in order for us to be reimbursed by the patient's insurance. Please provide a supporting diagnosis for the following test/procedure listed below next to the test name along with your signature. *If there is no additional diagnosis for this patient that would support the following test/procedure please document that below next to the test/procedure. Test(s)/Procedure(s) that require a supporting diagnosis: * PSA DIAGNOSIS: * DOS: 02/14/17 Provider Signature: Date: Thank you Mary Pastrana [facility] Information Management Once completed, please kindly fax back to [phone] For questions please call [phone]
== END | disposition home or self-care (01) ==
LOC: C.LAB 09:47
PROVIDERS: ATTEND Urology
DX: N39.3 Stress incontinence (female) (male) (principal); C61 Malignant neoplasm of prostate; R97.20 Elevated prostate specific antigen [PSA]

== ENCOUNTER → 2017-03-07 | Outpatient (CLI) | payer OTHER ==
[~2017-03-07] MED LIST changes: +OPTIRAY 320 IV PRN
--- NOTE | 2017-03-07 14:12 | DIAGNOSTIC IMAGING REPORT ---
CHEST CT WITH CONTRAST CT DOSE: 491.03 mGy.cm HISTORY: Follow-up SOLITARY PULMONARY NODULE TECHNIQUE: Multiaxial CT images of the chest were performed following the intravenous administration of contrast. COMPARISON: Chest CTA 01/03/2017. FINDINGS: No pleural effusions. No pneumothorax. Biapical pleural-parenchymal scarring remains unchanged. Emphysema. Decrease in size in the 9 mm nodule within the right upper lobe on image 121. The surrounding groundglass density has also improved. This nodule may demonstrate a small focus of cavitation. The central airways are patent. No suspicious lytic or blastic osseous lesions. Prominent right paratracheal and enlarged right hilar lymph node remains unchanged. The right hilar lymph node measures 1.5 cm in short axis diameter. No significant left hilar lymphadenopathy. Cholecystectomy. Bilateral adrenal gland nodules, unchanged. The right nodule measures 1.8 cm and the left nodule measures 2.8 cm. Partially visualized 1.6 cm hypodense lesion within the right kidney. There is a 1.5 cm hypodense lesion within the right hepatic lobe. Hepatic steatosis. The central pulmonary arteries are patent. The ascending thoracic aorta measures up to 4.2 cm. IMPRESSION: 1. Interval decrease in size in the 9 mm nodule within the right upper lobe. An additional [address] follow up is recommended to ensure complete resolution. 2. No change in the prominent right peritracheal lymph nodes and enlarged right hilar lymph node. This could be reactive but should also be assessed on follow-up CT. 3. Bilateral adrenal gland nodules, unchanged. 4. Mild dilatation of the ascending thoracic aorta, unchanged. Electronically signed by: Jaspal Ruvalcaba M.D. 03/07/2017 2:10 PM Dictated Date/Time: 03/07/2017 2:02 PM
== END | disposition home or self-care (01) ==
LOC: C.CTS 12:54
DX: R91.1 Solitary pulmonary nodule (principal)

== ENCOUNTER → 2017-05-19 | Outpatient (CLI) | payer OTHER ==
[~2017-05-19] MED LIST changes: -AZIT-57 PO; -METO-478 PO; +METO1TAB31 PO; -OPTIRAY 320 IV PRN; +ZTHM250 PO
[2017-05-19 12:57] LABS: BLOOD UREA NITROGEN 15 mg/dl (7-18); BUN/CREATININE RATIO 16.7 (10-20); CREATININE 0.89 mg/dl (0.60-1.40)
[2017-05-19 13:02] LABS: PROSTATE SPECIFIC ANTIGEN < 0.010 ng/ml (0.000-4.000)
--- NOTE | 2017-05-26 11:01 | CODING QUERY MEDICAL NECESSITY ---
SUPPORTING DIAGNOSIS NEEDED Dr. Yan, A supporting diagnosis is required for the test/procedure performed on this patient in order for us to be reimbursed by the patient's insurance. Please provide a supporting diagnosis for the following test/procedure listed below next to the test name along with your signature. *If there is no additional diagnosis for this patient that would support the following test/procedure please document that below next to the test/procedure. Test(s)/Procedure(s) that require a supporting diagnosis: * [id number] PSA DIAGNOSIS: DATE OF SERVICE: 05/19/17 Provider Signature: Date: Thank you Edwin Montesinos [facility] Information Management Once completed, please kindly fax back to [phone] For questions please call [phone]
== END | disposition home or self-care (01) ==
LOC: C.LAB 11:24
PROVIDERS: ATTEND Urology
DX: N28.1 Cyst of kidney, acquired (principal); C61 Malignant neoplasm of prostate

== ENCOUNTER → 2017-07-22 | Outpatient (CLI) | payer OTHER ==
[~2017-07-22] MED LIST changes: -CEFD1CAP14 PO; -CIPR1TAB10 PO; +OPTIRAY 320 IV PRN; -VNTHFA/IN INH
--- NOTE | 2017-07-22 10:39 | DIAGNOSTIC IMAGING REPORT ---
CHEST CT WITH CONTRAST CT DOSE: 669.08 mGycm HISTORY: Pulmonary nodule follow-up. History of colon cancer. PULMONARY NODULE TECHNIQUE: Multiaxial CT images of the chest were performed following the intravenous administration of 94 mL Optiray 320 IV contrast. A dose lowering technique was utilized adhering to the principles of ALARA. COMPARISON: CT chest 03/07/2017. FINDINGS: No dominant thyroid nodule is identified. Mildly enlarged right hilar lymph node is seen, 2.0 x 1.4 cm on image 136 of series 4, previously 2.3 x 1.4 cm. Right paratracheal lymph node measures 6 mm in short axis on image 93, previously 6 mm. No new adenopathy about the chest identified. Heart is mildly enlarged with coronary arterial calcifications. Mild atherosclerotic plaquing is seen involving the thoracic aorta. There is mild dilation of the descending thoracic aorta, 4.3 x 4.4 cm, unchanged. Pulmonary artery appears unremarkable. Moderate upper lobe predominant centrilobular and paraseptal emphysematous changes are noted. Noncalcified pulmonary nodules in the right upper lobe posterior segment has decreased in size in the interval measuring 6 x 5 mm as seen on image 128 of series 4, previously 9 x 8 mm on study dated 03/07/2017. No new pulmonary nodules are identified. Areas of subsegmental pleural-parenchymal scarring involving the lung apices. There is a calcified granuloma of the superior segment lingula. The central airways are patent. Imaged upper abdominal structures demonstrate no acute abnormality. Prior cholecystectomy. Bilateral adrenal gland nodules are again seen, largest on the left measuring up to 2.7 cm in greatest dimension. These are unchanged. Soft tissues are unremarkable. Bones appear intact. Multilevel intervertebral disc space narrowing and facet arthropathy noted. IMPRESSION: 1. Noncalcified pulmonary nodule within the posterior segment right upper lobe has continued to decrease in size, now 6 x 5 mm previously measuring 9 x 8 mm on comparison study dated 03/07/2017. Additional 3 month follow-up CT recommended to document resolution. 2. Unchanged nonspecific mildly enlarged right hilar and nonenlarged right paratracheal lymph nodes suggest reactive etiology. 3. Moderate upper lobe predominant paraseptal and centrilobular emphysema. 4. Unchanged mild dilation of the ascending thoracic aorta. Electronically signed by: Stefano Hills M.D. 07/22/2017 10:38 AM Dictated Date/Time: 07/22/2017 10:27 AM
== END | disposition home or self-care (01) ==
LOC: C.CTS 10:00
DX: R91.1 Solitary pulmonary nodule (principal); J43.9 Emphysema, unspecified; I77.810 Thoracic aortic ectasia

== ENCOUNTER → 2017-09-08 | Outpatient (CLI) | payer OTHER ==
[~2017-09-08] MED LIST changes: +AZIT-57 PO; +METO-478 PO; -METO1TAB31 PO; -OPTIRAY 320 IV PRN; -ZTHM250 PO
[2017-09-08 10:59] LABS: BLOOD UREA NITROGEN 13 mg/dl (7-18); BUN/CREATININE RATIO 14.6 (10-20); CREATININE 0.86 mg/dl (0.60-1.40)
[2017-09-08 11:03] LABS: PROSTATE SPECIFIC ANTIGEN < 0.010 ng/ml (0.000-4.000)
== END | disposition home or self-care (01) ==
LOC: C.LAB 09:46
PROVIDERS: ATTEND Urology
DX: N28.1 Cyst of kidney, acquired (principal); C61 Malignant neoplasm of prostate

== ENCOUNTER → 2017-09-19 | Outpatient (CLI) | payer OTHER ==
[~2017-09-19] MED LIST changes: +GADAVIST IV PRN
--- NOTE | 2017-09-19 11:55 | DIAGNOSTIC IMAGING REPORT ---
ABDOMEN COMBO HISTORY: 72 years-old Male RENAL CYST,ADRENAL NODULE follow-up study to assess renal cyst and intrarenal nodule. COMPARISON: Abdominal MRI 09/13/2015, CT 09/11/2014 TECHNIQUE: Multiplanar multisequence MRI of the abdomen was obtained both with and without the use of 9.5 mL Gadavist FINDINGS: Several sequences are moderately motion degraded which limits the study. Minimal nonspecific perinephric inflammatory stranding is present bilaterally. Circumscribed ovoid 2.1 x 1.8 x 1.8 cm T2 hyperintense lesion of the superior pole right kidney is again seen with similar appearing lesion measuring 5 mm noted within the interpolar right kidney. These lesions again demonstrate no postcontrast enhancement compatible with renal cysts. Renal sinus cysts are also noted, left greater than right. No hydronephrosis. The imaged spleen and pancreas are unremarkable. No intrahepatic or extrahepatic biliary ductal dilation. There is a lobular T2 hyperintense lesion again seen within segment 5 of the liver, 1.5 x 1.6 x 1.4 cm which demonstrates nodular peripheral discontinuous progressive enhancement with progressive central filling, unchanged from prior suggesting hemangioma. Lesions of the bilateral adrenal glands are again seen, 2.6 cm on the left and 1.4 cm on the right and appear unchanged from comparison study both which demonstrate loss of signal on the out of phase images compatible with adrenal adenomas. No adenopathy or ascites identified. IMPRESSION: 1. Stable appearance of bilateral adrenal adenomas. 2. Bilateral renal cysts are again seen, largest of which measures 2.1 cm within the superior pole right kidney. 3. 1.6 cm lesion of the right hepatic lobe as above also appears unchanged suggesting hepatic hemangioma. 4. Limited study secondary to patient motion. The above report was generated using voice recognition software. It may contain grammatical, syntax or spelling errors. Electronically signed by: Stefano Hills M.D. 09/19/2017 11:54 AM Dictated Date/Time: 09/19/2017 11:41 AM
== END | disposition home or self-care (01) ==
LOC: C.MRI 09:46
PROVIDERS: ATTEND Urology
DX: E27.9 Disorder of adrenal gland, unspecified (principal); N28.1 Cyst of kidney, acquired

== ENCOUNTER → 2017-12-23 | Outpatient (CLI) | payer OTHER ==
[~2017-12-23] MED LIST changes: -GADAVIST IV PRN; +OPTIRAY 320 IV PRN
--- NOTE | 2017-12-23 15:35 | DIAGNOSTIC IMAGING REPORT ---
CT SCAN OF THE CHEST WITH IV CONTRAST CLINICAL HISTORY: Pulmonary nodule COMPARISON STUDY: Chest CT scans dated 07/22/2017 and 01/03/17. TECHNIQUE: Following the IV administration of 116 cc of Optiray 320, CT scan of the thorax was performed from the thoracic inlet to the upper abdomen. Images are reviewed in the axial, sagittal, and coronal planes. IV contrast was administered without complication. A dose lowering technique was utilized adhering to the principles of ALARA. CT DOSE: 749.40 mGy.cm FINDINGS: Thyroid: Imaged portions of the thyroid gland are normal in size and attenuation. Thoracic aorta: There is atherosclerotic calcification of the thoracic aorta, which is normal in caliber and demonstrates standard 3-vessel arch anatomy. No dissection is seen. Pulmonary vasculature: The pulmonary trunk is normal in caliber. There are no filling defects identified in the central pulmonary vessels to indicate pulmonary embolus. Note that this examination was not protocoled for evaluation of the pulmonary arteries. Heart: The heart is mildly enlarged and without pericardial effusion. The coronary arteries are densely calcified. Lungs and pleural spaces: There is chronic elevation of left hemidiaphragm with associated atelectasis. Emphysema is observed. No airspace consolidation or pleural effusion is identified. Scattered calcified granulomas are observed. There is unchanged appearance of an 8 mm nodule in the right upper lobe seen on image #134 as compared to 07/22/2017. A 4 mm right middle lobe nodule is seen image 173, and this is unchanged dating back to . No new pulmonary nodule is identified. Mediastinum: There is no mediastinal lymphadenopathy. [place]: Clear. Axillae: There is no axillary lymphadenopathy. Upper abdomen: There is a tiny hiatal hernia. Cholecystectomy clips are noted. A 1.6 cm cyst is identified in the right hepatic lobe. Bilateral adrenal adenomas are unchanged. A 1.4 cm cyst is present in the upper pole of the right kidney. Skeletal structures: The skeletal structures are osteopenic. No lytic or blastic bony lesions are seen. IMPRESSION: 1. Cardiomegaly and emphysema. 2. There is unchanged appearance of an 8 mm right upper lobe pulmonary nodule as compared to 07/22/2017. This has decreased in size from earlier prior examinations. Continued 3-6 month follow-up is recommended to document complete resolution. 3. A 4 mm nodule in the right middle lobe is unchanged. No new pulmonary lesion is seen. This should also be reassessed at follow-up. 4. Additional findings as above. Electronically signed by: Kulwinder Sumner M.D. 12/23/2017 3:34 PM Dictated Date/Time: 12/23/2017 3:27 PM
== END | disposition home or self-care (01) ==
LOC: C.CTS 14:46
DX: I51.7 Cardiomegaly (principal); J43.9 Emphysema, unspecified; R91.8 Other nonspecific abnormal finding of lung field

== ENCOUNTER → 2018-01-16 | Outpatient (CLI) | payer OTHER ==
[~2018-01-16] MED LIST changes: -OPTIRAY 320 IV PRN
[2018-01-16 12:24] LABS: BLOOD UREA NITROGEN 16 mg/dl (7-18)
== END | disposition home or self-care (01) ==
LOC: C.LAB 09:41
PROVIDERS: ATTEND Urology
DX: N28.1 Cyst of kidney, acquired (principal)

== ENCOUNTER → 2018-06-29 | Outpatient (CLI) | payer OTHER ==
--- NOTE | 2018-06-29 09:27 | DIAGNOSTIC IMAGING REPORT ---
(CHEST) THORAX WITHOUT CLINICAL HISTORY: 72 years-old Male presenting with PULMONARY NODULE. TECHNIQUE: Multidetector CT imaging of the chest was performed without the use of intravenous contrast. IV contrast: None. A dose lowering technique was used consistent with the principles of ALARA (as low as reasonably achievable). COMPARISON: 12/23/2017. CT DOSE (mGy.cm): The estimated cumulative dose is 632.04. FINDINGS: Carpet Tile Layer topogram: Cholecystectomy clips noted. On soft tissue windows, normal thyroid and thoracic inlet. Scattered subcentimeter mediastinal lymph nodes likely reactive. Prominent right hilar lymph node measuring 11 mm in the short axis unchanged from prior (series 4 image 121). Atherosclerosis of the aorta. Normal heart size. Coronary artery and aortic valve calcification. No pericardial or pleural effusion. Well-defined hypodensity in the inferior right hepatic lobe indeterminate but likely hepatic cyst. This is unchanged from prior. Cholecystectomy clips noted. 2.6 cm left adrenal gland nodule consistent with benign adenoma by density. 1.6 cm right adrenal gland nodule also consistent with benign adenoma by density. These are unchanged from prior. On lung windows, mild apical predominant emphysema. Groundglass 6 mm nodule at the right apex is unchanged (series 4 image 64). Multiple calcified granulomata punctate. Solid irregularly marginated 8 mm right upper lobe nodule is unchanged (series 4 image 114). Solid 8 mm right middle lobe nodule unchanged (series 4 image 158). Solid 4 mm right middle lobe nodule also unchanged (series 4 image 158). Punctate peripheral right middle lobe nodule unchanged (series 4 image 185). Punctate solid left upper lobe nodule unchanged (series 4 image 131). Solid peripheral 3 mm lower lobe nodule unchanged (series 4 image 211). Solid peripheral adjacent 3 mm nodule unchanged (series 4 image 205). Airways patent. Mild bronchial wall thickening. No pneumothorax. On bone windows, degenerative changes of the spine. IMPRESSION: 1. Multiple solid bilateral pulmonary nodules are stable. No new pulmonary nodule. 2. Emphysema and smoking related lung injury 3. Prominent mediastinal and right hilar lymph nodes are likely reactive. These are also unchanged. 4. Bilateral benign adrenal adenomas. Electronically signed by: Alistair Corrales M.D. 06/29/2018 9:26 AM Dictated Date/Time: 06/29/2018 9:06 AM
[2018-06-29 09:49] LABS: BASO % 0.4 %; BASO ABS # 0.02 K/uL (0-0.2); EOS % 5.4 %; HEMATOCRIT 47.8 % (42-52); HEMOGLOBIN 16.6 g/dL (14.0-18.0); IG# 0.02 K/uL (0.00-0.02); LYMPH % 20.7 %; LYMPH ABS # 1.15 K/uL (1.2-3.4); MEAN CELL VOLUME 92.5 fL (80-100); MEAN CORPUSCULAR HEMOGLOBIN 32.1 pg (25-34); MEAN CORPUSCULAR HGB CONC 34.7 g/dl (32-36); MEAN PLATELET VOLUME 11.5 fL (7.4-10.4); MONO % 14.2 %; MONO ABS # 0.79 K/uL (0.11-0.59); NEUT % 58.9 %; NEUT ABS # 3.27 K/uL (1.4-6.5); PLATELET COUNT 160 K/uL (130-400); RED CELL DISTRIBUTION WIDTH CV 13.2 % (11.5-14.5); RED CELL DISTRIBUTION WIDTH SD 44.5 fL (36.4-46.3); WHITE BLOOD COUNT 5.55 K/uL (4.8-10.8)
[2018-06-29 09:58] LABS: ALBUMIN 3.1 gm/dl (3.4-5.0); ALKALINE PHOSPHATASE 69 U/L (45-117); ALT/SGPT 30 U/L (12-78); AST/SGOT 25 U/L (15-37); BLOOD UREA NITROGEN 17 mg/dl (7-18); CALCIUM 8.9 mg/dl (8.5-10.1); CARBON DIOXIDE 27 mmol/L (21-32); CHOLESTEROL 136 mg/dl (0-200); CREATININE 0.87 mg/dl (0.60-1.40); GLUCOSE 89 mg/dl (70-99); LDL CHOLESTEROL (DIRECT) 72 mg/dl; POTASSIUM 4.1 mmol/L (3.5-5.1); SODIUM 141 mmol/L (136-145); TOTAL PROTEIN 7.1 gm/dl (6.4-8.2)
== END | disposition home or self-care (01) ==
LOC: C.CTS 08:15
DX: I10 Essential (primary) hypertension (principal); E78.2 Mixed hyperlipidemia; I25.10 Atherosclerotic heart disease of native coronary artery without angina pectoris; R91.8 Other nonspecific abnormal finding of lung field; J43.9 Emphysema, unspecified; T59.811A Toxic effect of smoke, accidental (unintentional), initial encounter; X58.XXXA Exposure to other specified factors, initial encounter; D35.01 Benign neoplasm of right adrenal gland; D35.02 Benign neoplasm of left adrenal gland; R59.0 Localized enlarged lymph nodes

== ENCOUNTER 2021-04-25 15:17 | Inpatient (IN) ==
[2021-04-25] MEDS ORDERED: SODIUM CHLORIDE 0.9% 1000ML 2,000 ML IV ONE (15:40)
--- NOTE | 2021-04-25 15:45 | Emergency Department Note ---
Impression & Plan Sepsis, Abnormal CT scan of lung, Metastatic lung cancer (metastasis from lung to other site), Pancytopenia, Lower extremity deep venous thrombosis, Acute hypotension, Symptomatic anemia ED Provider Note NAME: HENOK SALINAS AGE: 75 SEX: M : 1945 ARRIVES VIA: Ambulance INFORMANT: Patient ED PROVIDER(S): Dirk Barrett DO CHIEF COMPLAINT: hypotension HPI: Patient is a 75-year-old male who presents to the ER for low blood pressure. Patient is at [facility]. 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 He was discharged to [facility]. There was a question of whether this was a bleed or not per the and they were not 100% sure. He was diagnosed with a clot in the right lower extremity as well. Patient denies all complaints at this time. No headache or change in vision. No chest pain or shortness of breath. No belly pain nausea vomiting or diarrhea. He has been chronically on 3.5 L nasal cannula since the incident. His blood pressures were low in the 80s today. He was found to be thrombocytopenic as well. ROS: See above HPI for pertinent positives & negatives. A total of 10 systems reviewed and were otherwise negative. PAST MEDICAL HISTORY:See Below PAST SURGICAL HISTORY:See Below FAMILY HISTORY:See Below SOCIAL HISTORY:See Below HOME MEDICATIONS:See Below ALLERGIES:See Below VITALS:See Below PHYSICAL EXAMINATION: GENERAL: Sitting up in bed, alert, ill-appearing, disheveled, rundown, on 3 L nasal cannula EYE EXAM: normal conjunctiva. PERRL and EOM's grossly intact. OROPHARYNX:mucous membranes are dry NECK: supple, no nuchal rigidity, no adenopathy, non-tender LUNGS: Diminished in bases. Normal chest wall mechanics HEART: no murmurs, S1 normal and S2 normal ABDOMEN: abdomen soft, non-tender, normo-active bowel sounds, no masses, no rebound or guarding. UPPER EXTREMITIES: upper extremities are grossly normal. LOWER EXTREMITIES: No pitting edema. NEURO EXAM: Awake alert following commands and answering questions very lethargic MEDICAL DECISION MAKING: Patient is a 75-year-old male with metastatic cancer with a recent stroke discharged home [facility] with a known DVT in his right thigh who presents the ER hypotensive. Systolic pressures were 70s to 80s. IVs were established. Patient was given 2 L of IV fluids. Labs showed diffuse morales cytopenia with a hemoglobin of 6 and platelets of 15. Patient was typed and crossed and given 2 units PRBCs as well as platelets while in the ER. BMP with mild hyponatremia. Lactate was elevated at 3.3. Troponin was elevated at 0.5. Systolic pressures trended up from the 70s to 80s to low 100s after 2 units of blood as well as IV fluids. CT angio of the chest shows metastatic disease with closing off of a bronchus and questionable pneumonia. He was given IV antibiotics including cefepime and vancomycin. Family was updated at bedside. Patient on arrival was a full code and after discussion they would like to talk with palliative care as he is clearly deteriorating quickly.Patient and are updated bedside discussed with the hospitalist. Triage Nursing notes reviewed. Limited review of prior medical records performed Vital Signs: reviewed and remarkable for no significant abnormalities Differential diagnosis: Differential diagnosis includes etiologies such as ectopic , dysfunction uterine bleeding, bleeding dyscrasia, trauma, infection, as well as others were entertained. ER treatment provided: See below Diagnostics interpreted by me: ECG: A. fib rate of 90 Normal axis No PVCs Nonspecific ST wave changes in the lateral leads QTC 504 Cardiac Monitoring: An order was placed for continuous cardiac monitoring. The monitor shows a rate of 91 with A. fib rhythm. Laboratory studies: As stated above and show below. Imaging studies: CTs as discussed above Consultation(s): Discussed with hospitalist for further evaluation Procedures: none Critical Care: I have personally spent 75 minutes of critical care time in the direct management of this patient. This includes bedside care, interpretation of diagnostic studies, and testing, discussion with consultants, patient, and family members, and other required patient management activities. This 75 minutes is in excess of all separately billable procedures. Past Med/Surg History Medical History (Updated 04/25/21 @ 21:22 by Dirk Barrett DO) Hepatic lesion MONITORING History of prostate cancer Hyperlipidemia Hypertension Kidney lesion MONITORING Lesion of adrenal gland MONITORING Myocardial Infarction 1998 Pulmonary nodule MONITORING Surgical History History of cardiac cath 1998 - [facility] - 1 STENT - FOLLOWS W/ DR. BHAGAT IN [facility] 11/2016 - PRE OP - [facility] - NO STENTS/ANGIOPLASTY - PT REPORTS STENT NO LONGER PATENT BUT W/ ADEQUATE COLLATERAL BLOOD FLOW History of cataract surgery LEFT History of cholecystectomy History of prostatectomy Family History (Updated 07/18/20 @ 10:37 by Alka Tabares) Other Heart disease Denies family history of Tuberculosis Diabetes Allergies Emphysema, unspecified Lung disease Cancer Asthma Social History (Updated 07/18/20 @ 10:26 by Alka Tabares) Smoking Status: Former smoker Tobacco Type: Cigarettes packs per day: 2; Years Smoked: 30; Second Hand Exposure: Yes ( A CHILD); Hx Alcohol Use: Yes Alcohol type: beer, wine and hard liquor Hx Substance Use: No Preferred Language: Yemeni Communication Ability: Effective Air Support Operations Operator Required: No Beliefs That Will Affect Care: None Current Living Situation: Spouse Feels Safe at Home: Yes Assistive Devices: Glasses Allergies Allergies Allergy/AdvReac Type Severity Reaction Status Date / Time Penicillins Allergy Unknown HIVES, Verified 11/21/20 13:28 FAINTED bee venom protein (honey bee) Allergy Unknown Unverified 04/25/21 17:27 lisinopril Allergy Unknown Unverified 04/25/21 17:27 Home Meds Home Medications Medication Instructions Recorded Confirmed atorvastatin [Lipitor] 40 mg PO PM 01/16/19 04/25/21 metoprolol succinate 25 mg PO QPM 01/16/19 04/25/21 cholecalciferol (vitamin D3) 1,000 units PO QAM 01/17/19 04/25/21 [Vitamin D3] Saccharomyces boulardii 250 mg PO BID 04/25/21 04/25/21 acetaminophen 650 mg PO Q4H PRN 04/25/21 04/25/21 amiodarone 200 mg PO DAILY 04/25/21 04/25/21 apixaban [Eliquis] 5 mg PO DAILY 04/25/21 04/25/21 cyanocobalamin-cobamamide [B12] 1 felicitas SUBLINGUAL DAILY 04/25/21 04/25/21 dexamethasone 0.75 mg PO DAILY 04/25/21 04/25/21 docusate sodium 100 mg PO BID 04/25/21 04/25/21 fluconazole 100 mg PO DAILY 04/25/21 04/25/21 folic acid 1 mg PO DAILY 04/25/21 04/25/21 lidocaine [Lidoderm] 1 patch TOPICAL DAILY 04/25/21 04/25/21 magnesium hydroxide [Milk of 400 mg PO DAILY PRN 04/25/21 04/25/21 Magnesia] ondansetron HCl 8 mg PO DAILY PRN 04/25/21 04/25/21 umeclidinium [Incruse Ellipta] 1 inh INHALATION DAILY 04/25/21 04/25/21 Results & Data (ED) Vital Signs Vital Signs - 24 hr 04/25/21 15:17 04/25/21 15:23 04/25/21 15:31 Temperature 36.4 C L Temperature Source Oral Pulse Rate 96 H 96 H 86 Pulse Rate from SpO2 Sensor 90 Pulse Rhythm Regular Regular Respiratory Rate 19 19 25 H Respiratory Effort / Characteristics Non-Labored Spontaneous Non-Labored Spontaneous Respiratory Depth Normal Respiratory Pattern Regular Blood Pressure 86/50 L 85/53 L Blood Pressure Mean 62 63 Pulse Oximetry 96 96 96 Oxygen Delivery Method Nasal Cannula Nasal Cannula Oxygen Flow Rate 3.5 3.5 Sepsis Recent Fever Within 48 Hours No Sepsis New/Unexplained Change in Mental Status No Sepsis Action Taken by Nursing No Action Required 04/25/21 15:53 04/25/21 16:01 04/25/21 16:23 Temperature Temperature Source Pulse Rate 87 Pulse Rate from SpO2 Sensor Pulse Rhythm Respiratory Rate 19 20 19 Respiratory Effort / Characteristics Non-Labored Spontaneous Non-Labored Spontaneous Respiratory Depth Respiratory Pattern Blood Pressure 80/57 L Blood Pressure Mean 64 Pulse Oximetry 96 96 Oxygen Delivery Method Nasal Cannula Nasal Cannula Oxygen Flow Rate 3.5 3.5 Sepsis Recent Fever Within 48 Hours Sepsis New/Unexplained Change in Mental Status Sepsis Action Taken by Nursing 04/25/21 16:56 04/25/21 17:01 04/25/21 17:31 Temperature 35.7 C L Temperature Source Axillary Pulse Rate 87 84 98 H Pulse Rate from SpO2 Sensor Pulse Rhythm Respiratory Rate 26 H 21 19 Respiratory Effort / Characteristics Respiratory Depth Respiratory Pattern Blood Pressure 100/73 91/63 L 100/66 Blood Pressure Mean 82 72 77 Pulse Oximetry 99 Oxygen Delivery Method Oxygen Flow Rate 3 Sepsis Recent Fever Within 48 Hours Sepsis New/Unexplained Change in Mental Status Sepsis Action Taken by Nursing 04/25/21 17:47 04/25/21 17:48 04/25/21 18:01 Temperature 35.8 C L Temperature Source Axillary Pulse Rate 95 H 92 H 87 Pulse Rate from SpO2 Sensor Pulse Rhythm Respiratory Rate 23 83 H 20 Respiratory Effort / Characteristics Respiratory Depth Respiratory Pattern Blood Pressure 103/68 103/68 100/72 Blood Pressure Mean 79 79 81 Pulse Oximetry 96 Oxygen Delivery Method Oxygen Flow Rate Sepsis Recent Fever Within 48 Hours Sepsis New/Unexplained Change in Mental Status Sepsis Action Taken by Nursing 04/25/21 18:03 04/25/21 18:31 Temperature 36.1 C L Temperature Source Axillary Pulse Rate 85 126 H Pulse Rate from SpO2 Sensor Pulse Rhythm Respiratory Rate 18 26 H Respiratory Effort / Characteristics Respiratory Depth Respiratory Pattern Blood Pressure 100/72 84/69 L Blood Pressure Mean 81 74 Pulse Oximetry 93 Oxygen Delivery Method Oxygen Flow Rate Sepsis Recent Fever Within 48 Hours Sepsis New/Unexplained Change in Mental Status Sepsis Action Taken by Nursing Laboratory Data Result diagrams: 04/25/21 15:40 04/25/21 15:40 Lab Results 04/25/21 04/25/21 04/25/21 Range/Units 15:40 15:40 15:40 WBC 9.54 (4.8-10.8) K/uL RBC 2.33 L (4.7-6.1) M/uL Hgb 7.4 L (14.0-18.0) g/dL POC Hgb (14.0-18.0) g/dl Hct 22.9 L (42-52) % POC Hct (42-52) % MCV 98.3 (80-100) fL MCH 31.8 (25-34) pg MCHC 32.3 (32-36) g/dL RDW Std Deviation 76.0 H (36.4-46.3) fL RDW Coeff of Diony 22.1 H (11.5-14.5) % Plt Count 15 L* (130-400) K/uL MPV 12.8 H (7.4-10.4) fL Absolute Nucleated RBC 0.12 H (0-0) K/uL Nucleated RBC % (auto) 1.2 % Neutrophils % (Manual) 91.3 % Lymphocytes % (Manual) 4.3 % Monocytes % (Manual) 3.5 % Myelocytes % (Man) 0.9 % Neutrophils # (Manual) 8.71 H (1.4-6.5) K/uL Total Absolute Neuts 8.71 H (1.4-6.5) K/uL Lymphocytes # (Manual) 0.41 L (1.2-3.4) K/uL Total Abs Lymphocytes 0.41 L (1.2-3.4) K/uL Monocytes # (Manual) 0.33 (0.11-0.59) K/uL Myelocytes # (Manual) 0.09 H (0-0) K/uL Hypogranular Neuts 1+ Platelet Estimate SIGNIFIC DECREASED (Normal) Giant Platelets 1+ Anisocytosis Present PT 14.0 H (9.0-12.0) Seconds INR 1.4 H (0.9-1.1) APTT 24.2 (21.0-31.0) Seconds PTT Ratio 0.9 VBG pH (7.36-7.41) VBG pCO2 (38-50) mmHg VBG pO2 mmHg VBG HCO3 mmol/L VBG O2 Saturation % VBG Base Excess mEq/L Barometric Pressure mm/Hg POC Sodium (135-144) mmol/L Sodium 146 H (136-145) mmol/L POC Potassium (3.3-5.0) mmol/L Potassium 3.8 (3.5-5.1) mmol/L POC Chloride (101-112) mmol/L Chloride 114 H (98-107) mmol/L Carbon Dioxide 25 (21-32) mmol/L POC Total CO2 (24-31) mmol/L Anion Gap 7.0 (3-11) POC Anion Gap (16-25) mmol/L POC BUN (7-18) mg/dl BUN 36 H (7-18) mg/dl Creatinine 0.96 (0.6-1.4) mg/dl POC Creatinine (0.6-1.3) mg/dl Est Cr Clr Drug Dosing Not Reportable Est GFR ( Amer) 90.5 ml/min Est GFR (Non-Af Amer) 78.1 ml/min BUN/Creatinine Ratio 37.4 H (10-20) Glucose 155 H (70-99) mg/dl POC Glucose (other) (70-99) mg/dl Lactate (0.4-2.0) mmol/L Calcium 7.7 L (8.5-10.1) mg/dl POC Ioniz Calcium Ugo (1.12-1.32) mmol/l Magnesium 1.8 (1.8-2.4) mg/dl Total Bilirubin 0.4 (0.2-1) mg/dl AST 27 (15-37) U/L ALT 20 (12-78) U/L Alkaline Phosphatase 110 (45-117) U/L Troponin I 0.511 H* (0-0.045) ng/ml Total Protein 5.0 L (6.4-8.2) gm/dl Albumin 1.3 L (3.4-5.0) gm/dl Globulin 3.7 (2.5-4.0) gm/dl Albumin/Globulin Ratio 0.4 L (0.9-2) Procalcitonin (0-0.5) ng/ml Specimen Hemolysis COVID-19 Eval Order SARS-CoV-2 (PCR) (Negative) Blood Type Blood Type Recheck Antibody Screen Crossmatch 04/25/21 04/25/21 04/25/21 Range/Units 15:40 15:49 15:58 WBC (4.8-10.8) K/uL RBC (4.7-6.1) M/uL Hgb (14.0-18.0) g/dL POC Hgb 6.1 L* (14.0-18.0) g/dl Hct (42-52) % POC Hct 18 L* (42-52) % MCV (80-100) fL MCH (25-34) pg MCHC (32-36) g/dL RDW Std Deviation (36.4-46.3) fL RDW Coeff of Diony (11.5-14.5) % Plt Count (130-400) K/uL MPV (7.4-10.4) fL Absolute Nucleated RBC (0-0) K/uL Nucleated RBC % (auto) % Neutrophils % (Manual) % Lymphocytes % (Manual) % Monocytes % (Manual) % Myelocytes % (Man) % Neutrophils # (Manual) (1.4-6.5) K/uL Total Absolute Neuts (1.4-6.5) K/uL Lymphocytes # (Manual) (1.2-3.4) K/uL Total Abs Lymphocytes (1.2-3.4) K/uL Monocytes # (Manual) (0.11-0.59) K/uL Myelocytes # (Manual) (0-0) K/uL Hypogranular Neuts Platelet Estimate (Normal) Giant Platelets Anisocytosis PT (9.0-12.0) Seconds INR (0.9-1.1) APTT (21.0-31.0) Seconds PTT Ratio VBG pH (7.36-7.41) VBG pCO2 (38-50) mmHg VBG pO2 mmHg VBG HCO3 mmol/L VBG O2 Saturation % VBG Base Excess mEq/L Barometric Pressure mm/Hg POC Sodium 144 (135-144) mmol/L Sodium (136-145) mmol/L POC Potassium 3.6 (3.3-5.0) mmol/L Potassium (3.5-5.1) mmol/L POC Chloride 106 (101-112) mmol/L Chloride (98-107) mmol/L Carbon Dioxide (21-32) mmol/L POC Total CO2 23 L (24-31) mmol/L Anion Gap (3-11) POC Anion Gap 19.0 (16-25) mmol/L POC BUN 34 H (7-18) mg/dl BUN (7-18) mg/dl Creatinine (0.6-1.4) mg/dl POC Creatinine 1.0 (0.6-1.3) mg/dl Est Cr Clr Drug Dosing Est GFR ( Amer) ml/min Est GFR (Non-Af Amer) ml/min BUN/Creatinine Ratio (10-20) Glucose (70-99) mg/dl POC Glucose (other) 158 H (70-99) mg/dl Lactate 3.3 H* (0.4-2.0) mmol/L Calcium (8.5-10.1) mg/dl POC Ioniz Calcium Ugo 1.18 (1.12-1.32) mmol/l Magnesium (1.8-2.4) mg/dl Total Bilirubin (0.2-1) mg/dl AST (15-37) U/L ALT (12-78) U/L Alkaline Phosphatase (45-117) U/L Troponin I (0-0.045) ng/ml Total Protein (6.4-8.2) gm/dl Albumin (3.4-5.0) gm/dl Globulin (2.5-4.0) gm/dl Albumin/Globulin Ratio (0.9-2) Procalcitonin 0.98 H (0-0.5) ng/ml Specimen Hemolysis COVID-19 Eval Order SARS-CoV-2 (PCR) (Negative) Blood Type Blood Type Recheck Antibody Screen Crossmatch 04/25/21 04/25/21 04/25/21 Range/Units 15:58 15:58 17:08 WBC (4.8-10.8) K/uL RBC (4.7-6.1) M/uL Hgb (14.0-18.0) g/dL POC Hgb (14.0-18.0) g/dl Hct (42-52) % POC Hct (42-52) % MCV (80-100) fL MCH (25-34) pg MCHC (32-36) g/dL RDW Std Deviation (36.4-46.3) fL RDW Coeff of Diony (11.5-14.5) % Plt Count (130-400) K/uL MPV (7.4-10.4) fL Absolute Nucleated RBC (0-0) K/uL Nucleated RBC % (auto) % Neutrophils % (Manual) % Lymphocytes % (Manual) % Monocytes % (Manual) % Myelocytes % (Man) % Neutrophils # (Manual) (1.4-6.5) K/uL Total Absolute Neuts (1.4-6.5) K/uL Lymphocytes # (Manual) (1.2-3.4) K/uL Total Abs Lymphocytes (1.2-3.4) K/uL Monocytes # (Manual) (0.11-0.59) K/uL Myelocytes # (Manual) (0-0) K/uL Hypogranular Neuts Platelet Estimate (Normal) Giant Platelets Anisocytosis PT (9.0-12.0) Seconds INR (0.9-1.1) APTT (21.0-31.0) Seconds PTT Ratio VBG pH 7.38 (7.36-7.41) VBG pCO2 41 (38-50) mmHg VBG pO2 22 mmHg VBG HCO3 24 mmol/L VBG O2 Saturation < 60.0 % VBG Base Excess -1.1 mEq/L Barometric Pressure 729.0 mm/Hg POC Sodium (135-144) mmol/L Sodium (136-145) mmol/L POC Potassium (3.3-5.0) mmol/L Potassium (3.5-5.1) mmol/L POC Chloride (101-112) mmol/L Chloride (98-107) mmol/L Carbon Dioxide (21-32) mmol/L POC Total CO2 (24-31) mmol/L Anion Gap (3-11) POC Anion Gap (16-25) mmol/L POC BUN (7-18) mg/dl BUN (7-18) mg/dl Creatinine (0.6-1.4) mg/dl POC Creatinine (0.6-1.3) mg/dl Est Cr Clr Drug Dosing Est GFR ( Amer) ml/min Est GFR (Non-Af Amer) ml/min BUN/Creatinine Ratio (10-20) Glucose (70-99) mg/dl POC Glucose (other) (70-99) mg/dl Lactate (0.4-2.0) mmol/L Calcium (8.5-10.1) mg/dl POC Ioniz Calcium Ugo (1.12-1.32) mmol/l Magnesium (1.8-2.4) mg/dl Total Bilirubin (0.2-1) mg/dl AST (15-37) U/L ALT (12-78) U/L Alkaline Phosphatase (45-117) U/L Troponin I (0-0.045) ng/ml Total Protein (6.4-8.2) gm/dl Albumin (3.4-5.0) gm/dl Globulin (2.5-4.0) gm/dl Albumin/Globulin Ratio (0.9-2) Procalcitonin (0-0.5) ng/ml Specimen Hemolysis COVID-19 Eval Order Covid19 at [facility] SARS-CoV-2 (PCR) (Negative) Blood Type O Positive Blood Type Recheck Antibody Screen NEGATIVE Crossmatch See Detail 04/25/21 04/25/21 Range/Units 17:08 17:10 WBC (4.8-10.8) K/uL RBC (4.7-6.1) M/uL Hgb (14.0-18.0) g/dL POC Hgb (14.0-18.0) g/dl Hct (42-52) % POC Hct (42-52) % MCV (80-100) fL MCH (25-34) pg MCHC (32-36) g/dL RDW Std Deviation (36.4-46.3) fL RDW Coeff of Diony (11.5-14.5) % Plt Count (130-400) K/uL MPV (7.4-10.4) fL Absolute Nucleated RBC (0-0) K/uL Nucleated RBC % (auto) % Neutrophils % (Manual) % Lymphocytes % (Manual) % Monocytes % (Manual) % Myelocytes % (Man) % Neutrophils # (Manual) (1.4-6.5) K/uL Total Absolute Neuts (1.4-6.5) K/uL Lymphocytes # (Manual) (1.2-3.4) K/uL Total Abs Lymphocytes (1.2-3.4) K/uL Monocytes # (Manual) (0.11-0.59) K/uL Myelocytes # (Manual) (0-0) K/uL Hypogranular Neuts Platelet Estimate (Normal) Giant Platelets Anisocytosis PT (9.0-12.0) Seconds INR (0.9-1.1) APTT (21.0-31.0) Seconds PTT Ratio VBG pH (7.36-7.41) VBG pCO2 (38-50) mmHg VBG pO2 mmHg VBG HCO3 mmol/L VBG O2 Saturation % VBG Base Excess mEq/L Barometric Pressure mm/Hg POC Sodium (135-144) mmol/L Sodium (136-145) mmol/L POC Potassium (3.3-5.0) mmol/L Potassium (3.5-5.1) mmol/L POC Chloride (101-112) mmol/L Chloride (98-107) mmol/L Carbon Dioxide (21-32) mmol/L POC Total CO2 (24-31) mmol/L Anion Gap (3-11) POC Anion Gap (16-25) mmol/L POC BUN (7-18) mg/dl BUN (7-18) mg/dl Creatinine (0.6-1.4) mg/dl POC Creatinine (0.6-1.3) mg/dl Est Cr Clr Drug Dosing Est GFR ( Amer) ml/min Est GFR (Non-Af Amer) ml/min BUN/Creatinine Ratio (10-20) Glucose (70-99) mg/dl POC Glucose (other) (70-99) mg/dl Lactate (0.4-2.0) mmol/L Calcium (8.5-10.1) mg/dl POC Ioniz Calcium Ugo (1.12-1.32) mmol/l Magnesium (1.8-2.4) mg/dl Total Bilirubin (0.2-1) mg/dl AST (15-37) U/L ALT (12-78) U/L Alkaline Phosphatase (45-117) U/L Troponin I (0-0.045) ng/ml Total Protein (6.4-8.2) gm/dl Albumin (3.4-5.0) gm/dl Globulin (2.5-4.0) gm/dl Albumin/Globulin Ratio (0.9-2) Procalcitonin (0-0.5) ng/ml Specimen Hemolysis COVID-19 Eval Order SARS-CoV-2 (PCR) NEGATIVE (Negative) Blood Type Blood Type Recheck O Positive Antibody Screen Crossmatch Administered Medications Discontinued Medications Sodium Chloride (Nss 1000ml) 2,000 mls @ 999 mls/hr IV .Q2H1M ONE Stop: 04/25/21 17:40 Last Infusion: 04/25/21 18:41 Dose: 0 mls/hr Documented by: [id number] Admin: 04/25/21 16:08 Dose: 999 mls/hr Documented by: [id number] Cefepime HCl 2,000 mg/ Syringe 20 mls @ 5 mls/min IV NOW STA; Protocol Stop: 04/25/21 16:44 Last Admin: 04/25/21 17:03 Dose: 5 mls/min Documented by: [id number] Vancomycin HCl 2,250 mg/ (Sodium Chloride) 545 mls @ 200 mls/hr IV NOW ONE Stop: 04/25/21 19:38 Last Infusion: 04/25/21 21:12 Dose: 0 mls/hr Documented by: [id number] Admin: 04/25/21 17:35 Dose: 200 mls/hr Documented by: [id number] Ioversol (Optiray 350 500ml) 120 ml IV ONCE ONE Stop: 04/25/21 16:21 Last Admin: 04/25/21 16:20 Dose: 1 ml Documented by: [id number] Imaging Data Radiologist's Impression: Chest X-Ray 04/25/21 15:23 XR chest 1V portable CLINICAL HISTORY: SEPSIS COMPARISON STUDY: 01/03/2017, CT scan dated 07/17/2020 FINDINGS: The heart is mildly enlarged. There is aortic tortuosity/ectasia. There is no lobar consolidation. There are no significant pleural effusions. There is an 8 cm pleural-based mass within the periphery of the left mid chest.[A contrast-enhanced chest CT is recommended in follow-up. IMPRESSION: 1. Interval development of an 8 cm pleural-based mass within the left mid chest peripherally. A contrast-enhanced chest CT is recommended in follow-up. ACT 112: Positive. There are findings on this exam that require communication between the performing entity and the patient following Patient Test Result Information Act ([place] Act 112) guidelines. Electronically signed by: Tommy Chanel M.D. 04/25/2021 4:03 PM Chest CTA 04/25/21 15:40 CT ANGIOGRAM OF THE CHEST CLINICAL HISTORY: PE ABNORMAL CHEST X-RAY. LEFT-SIDED PLEURAL-BASED MASS COMPARISON STUDY: Outside CT scan dated 11/20/2020 TECHNIQUE: Following the IV administration of 119 mL of Optiray, CT angiogram of the thorax was performed from the thoracic inlet to the lung bases utilizing the pulmonary embolus protocol. Images are reviewed in the axial, sagittal, and coronal planes. IV contrast was administered without complication. MIP imaging was performed. A dose lowering technique was utilized adhering to the principles of ALARA. CT DOSE: 1105.43 mGy.cm FINDINGS: There is an enlarging right mediastinal mass/lymph node measuring 56 mm. There is an enlarged right hilar lymph node measuring 25 x 14 mm. There was no evidence of thoracic aortic dilatation. There is mild aneurysmal dilatation of the ascending thoracic aorta which measures 40 mm the level the main pulmonary artery There were no pulmonary artery filling defects to indicate acute pulmonary embolism. There is a small right pleural effusion. There is moderately severe pulmonary emphysema. There is a 1 cm right upper lobe pulmonary nodule. There is secondary obstruction of the right lower lobe bronchus, and there are nodular right lower lobe airspace opacities, likely representing a postobstructive pneumonitis. There are left basilar opacities, atelectatic versus infectious/inflammatory. There is a large left-sided chest wall mass measuring 7.5 cm in diameter. There is secondary destruction of the left fourth rib. There are partially visualized bilateral adrenal nodules. IMPRESSION: 1. No evidence of acute pulmonary embolism. 2. Enlarging pathologic mediastinal and hilar lymph nodes. The is spinal ma ss/lymph node measures 56 mm. 3. Secondary obstruction of the right lower lobe bronchus with presumed postobstructive right lower lobe pneumonitis 4. Marked enlargement in a 7.5 cm left-sided chest wall mass with secondary destruction of the left fourth rib. 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 5. 1 cm right upper lobe pulmonary nodule 6. Bilateral adrenal nodules 7. Pulmonary emphysema 8. Small right pleural effusion ACT 112: Negative or not required by law. Electronically signed by: Tommy Chanel M.D. 04/25/2021 4:[address] 04/25/21 15:40 CT head/brain wo con CLINICAL HISTORY: Weakness. Possible acute stroke. PULMONARY MASS. COMPARISON STUDY: No previous studies for comparison. TECHNIQUE: Axial CT of the brain is performed from the vertex to the skull base. IV contrast was not administered for this examination. A dose lowering technique was utilized adhering to the principles of ALARA. CT DOSE: FINDINGS: There is a left posterior parieto-occipital hypodensity involving both cohen and white matter, likely representing a subacute infarct. There is no acute hemorrhage. There is no midline shift. There are patchy white matter hypodensities likely on a small vessel basis. There is a left cerebellar hypodensity consistent with a lacunar infarct. There is no evidence of pathologic ventricular dilatation. There is no evidence of acute sinusitis IMPRESSION: 1. 35 mm hypodense lesion within the left posterior parietal occipital region, likely representing a subacute infarct. 2. No evidence of acute hemorrhage. ACT 112: Negative or not required by law. Electronically signed by: Tommy Chanel M.D. 04/25/2021 4:40 PM Discharge Plan Visit Data Chief Complaint: Hypotension Stated Complaint: HYPOTENSION ED Provider: Dirk Barrett Discharge Problem: Sepsis, Abnormal CT scan of lung, Metastatic lung cancer (metastasis from lung to other site), Pancytopenia, Lower extremity deep venous thrombosis, Acute hypotension, Symptomatic anemia Patient Disposition: Admitted As Inpatient Discharge Instructions Interventions: ED Discharge Assessment Last Done: 04/25/21 20:31 Discharge Problem: Sepsis Qualifiers: Sepsis type: sepsis due to unspecified organism Sepsis acute organ dysfunction status: unspecified Qualified Code(s): A41.9 - Sepsis, unspecified organism Metastatic lung cancer (metastasis from lung to other site) Qualifiers: Laterality: unspecified laterality Qualified Code(s): C34.90 - Malignant neoplasm of unspecified part of unspecified bronchus or lung Lower extremity deep venous thrombosis Qualifiers: Affected thrombotic vein of extremity: unspecified vein of extremity Chronicity: acute Laterality: unspecified laterality Qualified Code(s): I82.409 - Acute embolism and thrombosis of unspecified deep veins of unspecified lower extremity
[2021-04-25] MEDS ORDERED: SODIUM CHLORIDE 0.9% 250 ML IV PRN ×2 (15:53→23:08)
[2021-04-25 16:02] LABS: iSTAT Hemoglobin 6.1 g/dl (14.0-18.0); iSTAT Ionized Calcium 1.18 mmol/l (1.12-1.32); iSTAT Potassium 3.6 mmol/L (3.3-5.0)
--- NOTE | 2021-04-25 16:05 | XRay Report ---
XR chest 1V portable CLINICAL HISTORY: SEPSIS COMPARISON STUDY: 01/03/2017, CT scan dated 07/17/2020 FINDINGS: The heart is mildly enlarged. There is aortic tortuosity/ectasia. There is no lobar consoli dation. There are no significant pleural effusions. There is an 8 cm pleural-based mass within the pe riphery of the left mid chest.[A contrast-enhanced chest CT is recommended in follow-up. IMPRESSION: 1. Interval development of an 8 cm pleural-based mass within the left mid chest peripherally. A contr ast-enhanced chest CT is recommended in follow-up. ACT 112: Positive. There are findings on this exam that require communication between the performing entity and the patient following Patient Test Result Information Act ([place] Act 112) guidelines. Electronically signed by: Tommy Chanel M.D. 04/25/2021 4:03 PM
[2021-04-25 16:13] LABS: Base Excess VBG -1.1 mEq/L; HCO3 VBG 24 mmol/L; PCO2 VBG 41 mmHg (38-50); PO2 VBG 22 mmHg; pH VBG 7.38 (7.36-7.41)
[2021-04-25 16:15] LABS: Oxygen Saturation VBG < 60.0 %
[2021-04-25] MEDS ORDERED: OPTIRAY 350 500ml IV ONE (16:20)
[2021-04-25 16:27] LABS: Alanine Aminotransferase 20 U/L (12-78); Albumin Globulin Ratio 0.4 (0.9-2); Albumin Level 1.3 gm/dl (3.4-5.0); Alkaline Phosphatase 110 U/L (45-117); Aspartate Aminotransferase 27 U/L (15-37); BUN Creatinine Ratio 37.4 (10-20); Bilirubin,Total 0.4 mg/dl (0.2-1); Blood Urea Nitrogen 36 mg/dl (7-18); Calcium 7.7 mg/dl (8.5-10.1); Carbon Dioxide 25 mmol/L (21-32); Chloride 114 mmol/L (98-107); Est GFR (African American) 90.5 ml/min; Est GFR (Non-African American) 78.1 ml/min; Globulin 3.7 gm/dl (2.5-4.0); Glucose 155 mg/dl (70-99); Magnesium 1.8 mg/dl (1.8-2.4); Potassium 3.8 mmol/L (3.5-5.1); Sodium 146 mmol/L (136-145)
[2021-04-25 16:28] LABS: Troponin I 0.511 ng/ml (0-0.045)
[2021-04-25 16:35] LABS: Hematocrit (blood only) 22.9 % (42-52); Hemoglobin 7.4 g/dL (14.0-18.0); Mean Corpuscular Hemoglobin 31.8 pg (25-34); Mean Corpuscular Hgb Conc 32.3 g/dL (32-36); Mean Corpuscular Volume 98.3 fL (80-100); Mean Platelet Volume 12.8 fL (7.4-10.4); Nucleated RBC # (auto) 0.12 K/uL (0-0); Nucleated RBC % (auto) 1.2 %; Platelet Count 15 K/uL (130-400); RDW Coefficient of Variation 22.1 % (11.5-14.5); Red Blood Count 2.33 M/uL (4.7-6.1); White Blood Count 9.54 K/uL (4.8-10.8)
[2021-04-25 16:36] LABS: ALC (manual) 0.41 K/uL (1.2-3.4); ANC (manual) 8.71 K/uL (1.4-6.5); Anisocytosis Present; Giant Platelets 1+; Hypogranular Neutrophils 1+; INR 1.4 (0.9-1.1); Lymphocytes # (manual) 0.41 K/uL (1.2-3.4); Lymphocytes % (manual) 4.3 %; Monocytes # (manual) 0.33 K/uL (0.11-0.59); Monocytes % (manual) 3.5 %; Myelocytes # (manual) 0.09 K/uL (0-0); Myelocytes % (manual) 0.9 %; Neutrophils # (manual) 8.71 K/uL (1.4-6.5); Neutrophils % (manual) 91.3 %; Partial Thromboplastin Ratio 0.9; Partial Thromboplastin Time 24.2 Seconds (21.0-31.0); Platelet Estimate SIGNIFIC DECREASED (Normal)
[2021-04-25] MEDS ORDERED: CEFEPIME 2,000 MG in SYRINGE 0 ML IV STA (16:41)
--- NOTE | 2021-04-25 16:41 | CT Scan Report ---
CT head/brain wo con CLINICAL HISTORY: Weakness. Possible acute stroke. PULMONARY MASS. COMPARISON STUDY: No previous studies for comparison. TECHNIQUE: Axial CT of the brain is performed from the vertex to the skull base. IV contrast was not administered for this examination. A dose lowering technique was utilized adhering to the principles of ALARA. CT DOSE: FINDINGS: There is a left posterior parieto-occipital hypodensity involving both cohen and white matter, likely representing a subacute infarct. There is no acute hemorrhage. There is no midline shift. There are patchy white matter hypodensities likely on a small vessel basis. There is a left cerebella r hypodensity consistent with a lacunar infarct. There is no evidence of pathologic ventricular dilatation. There is no evidence of acute sinusitis IMPRESSION: 1. 35 mm hypodense lesion within the left posterior parietal occipital region, likely representing a subacute infarct. 2. No evidence of acute hemorrhage. ACT 112: Negative or not required by law. Electronically signed by: Tommy Chanel M.D. 04/25/2021 4:40 PM
--- NOTE | 2021-04-25 16:52 | CT Scan Report ---
CT ANGIOGRAM OF THE CHEST CLINICAL HISTORY: PE ABNORMAL CHEST X-RAY. LEFT-SIDED PLEURAL-BASED MASS COMPARISON STUDY: Outside CT scan dated 11/20/2020 TECHNIQUE: Following the IV administration of 119 mL of Optiray, CT angiogram of the thorax was perfo rmed from the thoracic inlet to the lung bases utilizing the pulmonary embolus protocol. Images are r eviewed in the axial, sagittal, and coronal planes. IV contrast was administered without complication . MIP imaging was performed. A dose lowering technique was utilized adhering to the principles of AL SYDNEE. CT DOSE: 1105.43 mGy.cm FINDINGS: There is an enlarging right mediastinal mass/lymph node measuring 56 mm. There is an enlarged right h ilar lymph node measuring 25 x 14 mm. There was no evidence of thoracic aortic dilatation. There is mild aneurysmal dilatation of the ascen ding thoracic aorta which measures 40 mm the level the main pulmonary artery There were no pulmonary artery filling defects to indicate acute pulmonary embolism. There is a small right pleural effusion. There is moderately severe pulmonary emphysema. There is a 1 cm right upper lobe pulmonary nodule. Th ere is secondary obstruction of the right lower lobe bronchus, and there are nodular right lower lobe airspace opacities, likely representing a postobstructive pneumonitis. There are left basilar opacit ies, atelectatic versus infectious/inflammatory. There is a large left-sided chest wall mass measurin g 7.5 cm in diameter. There is secondary destruction of the left fourth rib. There are partially visualized bilateral adrenal nodules. IMPRESSION: 1. No evidence of acute pulmonary embolism. 2. Enlarging pathologic mediastinal and hilar lymph nodes. The is spinal mass/lymph node measures 56 mm. 3. Secondary obstruction of the right lower lobe bronchus with presumed postobstructive right lower l obe pneumonitis 4. Marked enlargement in a 7.5 cm left-sided chest wall mass with secondary destruction of the left f ourth rib. 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 5. 1 cm right upper lobe pulmonary nodule 6. Bilateral adrenal nodules 7. Pulmonary emphysema 8. Small right pleural effusion ACT 112: Negative or not required by law. Electronically signed by: Tommy Chanel M.D. 04/25/2021 4:51 PM
[2021-04-25] MEDS ORDERED: VANCOMYCIN CONSULT ACTIVE PRN (16:55)
[2021-04-25] MEDS ORDERED: VANCOMYCIN HCL 2,250 MG in SODIUM CHLORIDE 0.9% 500 ML IV ONE (16:55)
--- NOTE | 2021-04-25 17:24 | History & Physical Report ---
Date of Service April 25, 2021 Assessment & Plan (1) Metastatic lung cancer (metastasis from lung to other site): Elevated Lactic acid /Hypotension /Tachycardia : meets criteria for sepsis : possible source Rt lower lobe post obstructive pneumonia ordered for IV cefepime given IV fluid for hypotension hold all antihypertensive meds very poor prognosis family aware , want to cont IV abx for now , possible transition to comfort care in next few days after having a formal discussion with Pallaitive care team Diagnosed with metastatic right middle lobe non-small cell carcinoma on October 2020 Status post right middle lobectomy by cardiothoracic surgery at [facility] in 10/2020 Received chemo treatment in [place]-Hematology oncology Dr. Pennington hx of pulmonary embolism with saddle emboli-Was on Eliquis, discontinued secondary to thrombocytopenia/anemia Recent admission for subarachnoid hemorrhage in [place], on 04/11/2021 to 04/24/2021 Had prolonged complicated hospital stay Severe anemia required multiple blood transfusion, Lactic acidosis On 04/11/2021 MRI of the brain shows possible metastatic brain disease, patient was treated with p.o. prednisone taper, Lower extremity Doppler showed DVT of the right femoral vein, vascular surgery was consulted but IVC filter was not recommended due to being nidus for future thromboembolic complication has ant chest wall metastatic of lung cancer leading pathologic left rib fracture Overall prognosis remains extremely poor, I had a detail discussion with patient's and daughter,Present at bedside family do not want pt to transfer back to [facility] feels patient may not be able to tolerate any future treatment, wants patient to be comfortable only, Willing for palliative care consult, hoping to have patient return home with [facility] Palliative care consulted, Post obstructive pneumonia : CT chest shows left main bronchus compression from lung mass, Suggestive of post obstructive pneumonia, Ordered cefepime, overall prognosis remains very poor Dysphagia possible due to above : had esophagogram and speech eval done in [facility] Continue soft diet with thickened liquid as per recent speech recommendation (2) Pancytopenia: Possible secondary to recent chemo treatment, also concern for possible bone marrow metastasis of cancer. Received 2 units of PRBC and 1 and subplatelet transfusion in the ER Extremely poor prognosis, palliative care consulted (3) Stroke due to embolism: Possible embolic stroke history of paroxysmal A. fib, coagulopathy secondary to metastatic malignancy: hx Saddle PE/lower extremity DVT, recent MRI showed possible metastatic liver ration Not a candidate for antiplatelet therapy secondary to Thrombocytopenia, anemia , evidence of mucosal bleeding diffuse petechiae,Recent subarachnoid hemorrhage Prognosis remains guarded (4) Lower extremity deep venous thrombosis: Diagnosed recently at [facility], Not on anticoagulation as explained above, Not a candidate for IVC filter placement (5) Palliative care patient: Patient's life expectancy is few weeks to month. Hospice palliative care is appropriate palliative care consulted after discussing with family members,family do not want any aggressive treatment wants to continue with antibiotic treatment and supportive care till having a formal discussion with palliative care team CODE STATUS : DNR /DNI DVT prophylaxis: High risk for DVT secondary to metastatic malignancy. Not a candidate for pharmacological anticoagulation, not a candidate for SCD and teds given recent DVT. Disposition: Case management consulted to assist in discharge planning Family is hoping to have patient return home with hospice History of Present Illness Chief Complaint: Weakness, anemia, thrombocytopenia, metastatic lung cancer. Primary Care Provider: [facility] This is an unfortunate 75-year-old male with significant past medical history of metastatic stage IV non-small cell lung cancer status post right middle lobectomy in 11/02/2020, status post chemo and radiation treatment. 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 fib, COPD, coronary artery disease with prior DE, hypertension, dyslipidemia Patient was admitted to [facility] from 04/11/2021 to 04/24/2021 for subarachnoid hemorrhage, possible metastatic brain lesion, acute left [employer] stroke, pancytopenia, pathological fracture of ribs, Was discharged yesterday 04/24/2021 to [facility] for rehab. Today during physical therapy evaluation patient found to be severely deconditioned, weak, hypoxic Vital check in [facility] showed his BP in low 80s, Patient sent to [facility] ER Patient was found to be hypotensive SBP in 86/50 Anemia hemoglobin in low 7 with thrombocytopenia platelet count 15 diffuse petechiae noted on extremities and torso, No hematuria or melena, no nosebleed Lactic acid level was significantly elevated more than 3 CT head showed subacute left parieto-occipital infarct CTA chest: Enlarging pathologic and mediastinal and hilar lymph nodes, Secondary obstruction of right lower lobe bronchus with presumed postobstructive right lower lobe pneumonia Marked enlargement in a 7.5 cm left chest wall mass with secondary destruction of the left fourth rib this is felt to be neoplastic In the ER patient found to be lethargic, and daughter present at bedside, able to provide most of the information's. No report of fever or chills, extremely poor appetite, generalized weakness and fatigue Allergies Allergy/AdvReac Type Severity Reaction Status Date / Time Penicillins Allergy Unknown HIVES, Verified 11/21/20 13:28 FAINTED bee venom protein (honey bee) Allergy Unknown Unverified 04/25/21 17:27 lisinopril Allergy Unknown Unverified 04/25/21 17:27 Home Medications Medication Instructions Recorded Confirmed Type atorvastatin [Lipitor] 40 mg PO PM 01/16/19 04/25/21 History metoprolol succinate 25 mg PO QPM 01/16/19 04/25/21 History cholecalciferol (vitamin D3) 1,000 units PO QAM 01/17/19 04/25/21 History [Vitamin D3] Saccharomyces boulardii 250 mg PO BID 04/25/21 04/25/21 History acetaminophen 650 mg PO Q4H PRN 04/25/21 04/25/21 History amiodarone 200 mg PO DAILY 04/25/21 04/25/21 History apixaban [Eliquis] 5 mg PO DAILY 04/25/21 04/25/21 History cyanocobalamin-cobamamide [B12] 1 felicitas SUBLINGUAL DAILY 04/25/21 04/25/21 History dexamethasone 0.75 mg PO DAILY 04/25/21 04/25/21 History docusate sodium 100 mg PO BID 04/25/21 04/25/21 History fluconazole 100 mg PO DAILY 04/25/21 04/25/21 History folic acid 1 mg PO DAILY 04/25/21 04/25/21 History lidocaine [Lidoderm] 1 patch TOPICAL DAILY 04/25/21 04/25/21 History magnesium hydroxide [Milk of 400 mg PO DAILY PRN 04/25/21 04/25/21 History Magnesia] ondansetron HCl 8 mg PO DAILY PRN 04/25/21 04/25/21 History umeclidinium [Incruse Ellipta] 1 inh INHALATION DAILY 04/25/21 04/25/21 History Past Med/Surg History Medical History (Updated 04/25/21 @ 19:40 by Katarina Kilgore MD) Hepatic lesion MONITORING History of prostate cancer Hyperlipidemia Hypertension Kidney lesion MONITORING Lesion of adrenal gland MONITORING Myocardial Infarction 1998 Pulmonary nodule MONITORING Surgical History History of cardiac cath 1998 - [place], [place] - [place] - 1 STENT - FOLLOWS W/ DR. BHAGAT IN [place] 11/2016 - PRE OP - [facility] - NO STENTS/ANGIOPLASTY - PT REPORTS STENT NO LONGER PATENT BUT W/ ADEQUATE COLLATERAL BLOOD FLOW History of cataract surgery LEFT History of cholecystectomy History of prostatectomy Family History (Updated 07/18/20 @ 10:37 by Alka Tabares) Other Heart disease Denies family history of Tuberculosis Diabetes Allergies Emphysema, unspecified Lung disease Cancer Asthma Social History (Updated 07/18/20 @ 10:26 by Alka Tabares) Smoking Status: Former smoker Tobacco Type: Cigarettes packs per day: 2; Years Smoked: 30; Second Hand Exposure: Yes ( A CHILD); Hx Alcohol Use: Yes Alcohol type: beer, wine and hard liquor Hx Substance Use: No Preferred Language: Peruvian Communication Ability: Effective Tire Manager Required: No Beliefs That Will Affect Care: None Current Living Situation: Spouse Feels Safe at Home: Yes Assistive Devices: Glasses Review of Systems Constitutional: + fatigue, + malaise, + weakness, + anorexia and + weight loss; no fever and no body aches Respiratory: + cough (Productive sputum) and + dyspnea; no wheezing Cardiovascular: no chest pain Gastrointestinal: no abdominal pain Physical Exam Physical Exam: Physical exam: General: Acutely ill male, appears to be confused, awake, HEENT: Sclera nonicteric Heart:Irregular, no JVD noted Lungs:Bibasilar Rales, crackles Abdomen: Soft nontender, Extremity: Diffuse petechiae noted on torso, multiple bruises on upper and lower extremity Neuro: Unable to assess as patient found to be very confused, unable to follow instruction Results & Data Results & Data ([facility]) Vital Signs (Past 12 Hours) Vital Signs Temp Pulse Resp BP Pulse Ox 04/25/21 16:23 19 96 04/25/21 16:01 87 20 80/57 L 04/25/21 15:53 19 96 04/25/21 15:31 86 25 H 85/53 L 96 04/25/21 15:23 96 H 19 96 04/25/21 15:17 36.4 C L 96 H 19 86/50 L 96 Code Status & VTE Plan VTE Prophylaxis Plan VTE Prophylaxis will be ordered: Yes
[2021-04-25] MEDS ORDERED: D5W AND 1/2NSS 1,000 ML IV SCH (19:00)
[2021-04-25] MEDS ORDERED: ACETAMINOPHEN 325 MG TAB PO PRN (21:10)
[2021-04-25] MEDS ORDERED: PROMETHAZINE HCL 12.5 MG in SODIUM CHLORIDE 0.9% 50 ML IV PRN (21:10)
[2021-04-25] MEDS ORDERED: MAGNESIUM HYDROXIDE SUSP 30 ML UDC PO PRN (21:10)
[2021-04-25] MEDS ORDERED: LORazepam 0.5 MG TAB PO PRN (21:10)
[2021-04-25] MEDS ORDERED: haloperidoL 1 MG TAB PO PRN (21:10)
[2021-04-25] MEDS ORDERED: MoRPHine SULFATE 5 MG/0.25 ML UDP PO PRN (21:10)
[2021-04-25] MEDS ORDERED: ONDANSETRON INJ 2 MG/ML 2 ML VIAL IV PRN (21:10)
[2021-04-25] MEDS ORDERED: ONDANSETRON 4 MG OD TAB SL PRN (21:10)
[2021-04-25] MEDS: DOCUSATE SODIUM 100 MG CAP PO SCH (21:43)
[2021-04-26] MEDS: MoRPHine SULFATE 2 MG/ML CARP IV PRN ×3 (04:25→22:06)
[2021-04-26] MEDS: CEFEPIME 2,000 MG in SYRINGE 0 ML IV SCH ×2 (05:52→17:27)
[2021-04-26 06:59] LABS: BUN Creatinine Ratio 55.6 (10-20); Calcium 7.9 mg/dl (8.5-10.1); Creatinine Clr Calc Pharmacy 132.7 ml/min; Est GFR (African American) 120.7 ml/min; Est GFR (Non-African American) 104.2 ml/min; Potassium 3.1 mmol/L (3.5-5.1)
[2021-04-26 07:07] LABS: Hematocrit (blood only) 29.3 % (42-52); Hemoglobin 10.1 g/dL (14.0-18.0); Mean Corpuscular Hemoglobin 34.5 pg (25-34); Mean Corpuscular Hgb Conc 34.5 g/dL (32-36); Platelet Count 51 K/uL (130-400); RDW Coefficient of Variation 23.1 % (11.5-14.5); RDW Standard Deviation 69.4 fL (36.4-46.3); Red Blood Count 2.93 M/uL (4.7-6.1); White Blood Count 14.89 K/uL (4.8-10.8)
[2021-04-26] MEDS: DOCUSATE SODIUM 100 MG CAP PO SCH ×2 (08:37→19:54)
[2021-04-26] MEDS: FOLIC ACID 1 MG TAB PO SCH (08:37)
[2021-04-26] MEDS: LIDOCAINE 5% 1 PATCH TD SCH ×2 (08:37→08:39)
[2021-04-26] MEDS: UMECLIDINIUM BROMIDE 62.5MCG/BLISTER 7 PUFFS/INHALER INH SCH (08:38)
[2021-04-26] MEDS ORDERED: NON-FORMULARY MEDICATION (Cyanocobalamin-Cobamamide [B12] 5,000-100 mcg Lozenge) SL SCH (09:00)
--- NOTE | 2021-04-26 09:37 | Electrocardiogram Report ---
Test Reason : Blood Pressure : / mmHG Vent. Rate : 092 BPM Atrial Rate : 120 BPM P-R Int : 000 ms QRS Dur : 110 ms QT Int : 408 ms P-R-T Axes : 000 001 062 degrees QTc Int : 504 ms Atrial fibrillation Cannot rule out Inferior infarct , age undetermined Anterior infarct , age undetermined Poor R wave progression, consider anterior AR vs. lead placemen t vs. LVH Inferior infarct , age undetermined Abnormal ECG When compared with ECG of 24-SEP-2020 10:45, Atrial fibrillation has replaced Sinus rhythm Anterior infarct is now Present vs lead placement T wave inversion now evident in Anterior leads QT has lengthened Confirmed by Mynor Estrada ([id number]) on 04/26/2021 9:37:10 AM Referred By: [facility] Confirmed By:Mynor Estrada
--- NOTE | 2021-04-26 14:34 | Palliative Care Consultation ---
Date of Consultation April 26, 2021 Assessment & Plan (1) Palliative care encounter: I talked with Rosys about how he is coping with his illness. He has consistently had an attitude of doing whatever he needs to do to prolong his life. He tells me that his family is his greatest genet and losing them is his greatest worry. He does acknowledge that he has had significant obstacles and that he does not appear to be improving as he'd hoped. I spoke with his on the phone with additional family members on speaker phone. They understand that his prognosis is poor and they very much want him to be at home for his remaining days. They have been working with case management on setting up hospice with [facility] at home. We discussed hospice care as focus on comfort rather than testing and treating his illness. We specifically talked about transfusions, which he has been receiving frequently. His understands that we would not monitor his CBC on hospice and that transfusion would not generally be consistent with comfort directed care. She expresses concern about the risks of volume overload and how he would tolerate further transfusions in his debilitated state. We discussed prognosis at family request and at this time I suspect that he is likely to within the next few weeks. There are multiple nurses in the family and they are comfortable with caring for him at home. We discussed hospice monitoring symptoms and adjusting medications to address symptoms as they arise. Plan is for home with hospice. (2) Metastatic lung cancer (metastasis from lung to other site): Laterality: unspecified laterality Qualified Code(s): C34.90 - Malignant neoplasm of unspecified part of unspecified bronchus or lung (3) COPD (chronic obstructive pulmonary disease): (4) Sepsis: Sepsis acute organ dysfunction status: unspecified Sepsis type: sepsis due to unspecified organism Qualified Code(s): A41.9 - Sepsis, unspecified organism History of Present Illness Reason for Consultation: goals of care Requesting Physician: Dr. Kilgore Attending Physician: Katarina Kilgore MD History of Present Illness 75 yo gentleman with Stage IV NSCLC. He had lobectomy in October of 2020 and has had both chemo and radiation therapies. He has had complicated course with pulmonary saddle embolus and most recently hospitalization at [facility] from April 11 to April 24 for subarachnoid hemorrhage. He was discharged to [facility] for rehab but was noted to be hypoxic and hypertensive and was transferred to [facility] for further evaluation. Chest imaging shows post 7.5 cm left chest mass and mediastinal and hilar adenopathy with right bronchus obstruction and post obstructive pneumonia. He was also found to be anemic and is s/p transfusion with hemoglobin increased to 10.1 from 7.4 prior to transfusion. His notes that he has been requiring periodic transfusions with increasing frequency. He is awake but very weak. His speech is difficult to understand. He denies pain or dyspnea at this time. Allergies Allergy/AdvReac Type Severity Reaction Status Date / Time Penicillins Allergy Unknown HIVES, Verified 11/21/20 13:28 FAINTED bee venom protein (honey bee) Allergy Unknown Unverified 04/25/21 17:27 lisinopril Allergy Unknown Unverified 04/25/21 17:27 Home Medications Medication Instructions Recorded Confirmed Type atorvastatin [Lipitor] 40 mg PO PM 01/16/19 04/25/21 History metoprolol succinate 25 mg PO QPM 01/16/19 04/25/21 History cholecalciferol (vitamin D3) 1,000 units PO QAM 01/17/19 04/25/21 History [Vitamin D3] Saccharomyces boulardii 250 mg PO BID 04/25/21 04/25/21 History acetaminophen 650 mg PO Q4H PRN 04/25/21 04/25/21 History amiodarone 200 mg PO DAILY 04/25/21 04/25/21 History apixaban [Eliquis] 5 mg PO DAILY 04/25/21 04/25/21 History cyanocobalamin-cobamamide [B12] 1 felicitas SUBLINGUAL DAILY 04/25/21 04/25/21 History dexamethasone 0.75 mg PO DAILY 04/25/21 04/25/21 History docusate sodium 100 mg PO BID 04/25/21 04/25/21 History fluconazole 100 mg PO DAILY 04/25/21 04/25/21 History folic acid 1 mg PO DAILY 04/25/21 04/25/21 History lidocaine [Lidoderm] 1 patch TOPICAL DAILY 04/25/21 04/25/21 History magnesium hydroxide [Milk of 400 mg PO DAILY PRN 04/25/21 04/25/21 History Magnesia] ondansetron HCl 8 mg PO DAILY PRN 04/25/21 04/25/21 History umeclidinium [Incruse Ellipta] 1 inh INHALATION DAILY 04/25/21 04/25/21 History Patient History Medical History Hepatic lesion MONITORING History of prostate cancer Hyperlipidemia Hypertension Kidney lesion MONITORING Lesion of adrenal gland MONITORING Myocardial Infarction 1998 Pulmonary nodule MONITORING Surgical History History of cardiac cath 1998 - [place], [place] - 1 STENT - FOLLOWS W/ DR. BHAGAT IN [place] 11/2016 - PRE OP - [facility] - NO STENTS/ANGIOPLASTY - PT REPORTS STENT NO LONGER PATENT BUT W/ ADEQUATE COLLATERAL BLOOD FLOW History of cataract surgery LEFT History of cholecystectomy History of prostatectomy Family History Other Heart disease Denies family history of Tuberculosis Diabetes Allergies Emphysema, unspecified Lung disease Cancer Asthma Social History Smoking Status: Former smoker Tobacco Type: Cigarettes packs per day: 2; Years Smoked: 30; Second Hand Exposure: Yes ( A CHILD); Hx Alcohol Use: No Hx Substance Use: No Preferred Language: Polish Communication Ability: Effective Piece Work Checker Required: No Beliefs That Will Affect Care: None Current Living Situation: Spouse Other Information That Helps Us Care for You: No Feels Safe at Home: Yes Safety Concerns: Feels Safe At This Time Assistive Devices: Glasses Review of Systems Review of Systems: [place] Symptom Assessment Scale Pain 0/3 Anxiety 1/3 Dyspnea 0/3 Fatigue 2/3 Nausea 0/3 Drowsiness 1/3 Palliative Performance Score 30% Physical Exam Constitutional: + ill appearing ENMT: Mouth: + dry oral mucous membranes Respiratory: normal respiratory effort; no labored breathing Cardiovascular: Extremities: no edema Gastrointestinal (Abdomen): Inspection/Auscultation: abdomen not distended Musculoskeletal: Extremities: + muscle atrophy Neurologic: awake; not confused Genitourinary: continent of bowel and bladder Results & Data ([facility]) Vital Signs (Past 12 Hours) Vital Signs Temp Pulse Pulse Resp BP BP Pulse Ox 04/26/21 07:30 98.4 F 97 H 16 116/71 90 04/26/21 04:15 98.4 F 90 18 121/74 93 04/26/21 03:26 98.1 F 85 18 123/74 93 04/26/21 02:26 98.1 F 87 18 124/75 94 04/26/21 01:26 97.7 F 90 18 125/71 93 04/26/21 00:56 97.5 F L 93 H 18 119/74 93 04/26/21 00:41 97.3 F L 95 H 18 120/75 93 04/26/21 00:21 97.7 F 90 14 117/71 91 04/26/21 00:20 Pulse Ox 04/26/21 07:30 04/26/21 04:15 04/26/21 03:26 04/26/21 02:26 04/26/21 01:26 04/26/21 00:56 04/26/21 00:41 04/26/21 00:21 04/26/21 00:20 93 PG Care Time/CCT Total # of Minutes Spent Total Time Spent with Patient: Total time spent is greater than 50% in coor dination of care (as documented) at patient's floor/unit and/or counseling patient: total time spent 70 minutes with more than 50% of time spent on goals of care, hospice, prognosis, family education and support. Coding Level of Care Code 06028 Inpt Consult Level 4 Diagnoses Palliative care encounter Z51.5 Metastatic lung cancer (metastasis from lung to other site) C34.90 Laterality: unspecified laterality COPD (chronic obstructive pulmonary disease) J44.9 Sepsis A41.9 Sepsis acute organ dysfunction status: unspecified Sepsis type: sepsis due to unspecified organism Time Spent (min) 70
[2021-04-26] MEDS ORDERED: ATROPINE SULFATE 1% OP SOLN 5 ML BTL SL PRN (17:24)
[2021-04-26] MEDS ORDERED: LORazepam 0.25 MG/0.5 ML VIAL IV STA (17:58)
--- NOTE | 2021-04-26 17:58 | Hospitalist Progress Note ---
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 Pennington hx of pulmonary embolism with saddle emboli- Was on Eliquis, discontinued secondary to thrombocytopenia/anemia/subarachnoid hemorrhage Severe anemia required multiple blood transfusion, Hemoglobin improved after PRBC transfusion, Overall prognosis extremely poor, Lactic acidosis On 04/11/2021 MRI of the brain shows possible metastatic brain disease, patient was treated with p.o. prednisone taper, Lower extremity Doppler showed DVT of the right femoral vein, vascular surgery was consulted but IVC filter was not recommended due to being nidus for future thromboembolic complication has ant chest wall metastatic of lung cancer leading pathologic left rib fracture Overall prognosis remains extremely poor, I had a detail discussion with patient's and daughter,Present at bedside family do not want pt to transfer back to [facility] feels patient may not be able to tolerate any future treatment, wants patient to be comfortable only, family , hoping to have patient return home with hospice Palliative care consult appreciated Post obstructive pneumonia : CT chest shows left main bronchus compression from lung mass, Suggestive of post obstructive pneumonia, Ordered cefepime, overall prognosis remains very poor Dysphagia possible due to above : had esophagogram and speech eval done in [facility] Continue soft diet with thickened liquid as per recent speech recommendation pt does not like thickened liquid had aspiration with couging spell while sipping on water ordered for strict aspiration precaution (2) Pancytopenia: Possible secondary to recent chemo treatment, also concern for possible bone marrow metastasis of cancer. Received 2 units of PRBC and 1 and subplatelet transfusion in the ER Extremely poor prognosis, palliative care consulted (3) Stroke due to embolism: Possible embolic stroke history of paroxysmal A. fib, coagulopathy secondary to metastatic malignancy: hx Saddle PE/lower extremity DVT, recent MRI showed possible metastatic liver ration Not a candidate for antiplatelet therapy secondary to Thrombocytopenia, anemia , evidence of mucosal bleeding diffuse petechiae,Recent subarachnoid hemorrhage Prognosis remains guarded (4) Lower extremity deep venous thrombosis: Diagnosed recently at [facility], Not on anticoagulation as explained above, Not a candidate for IVC filter placement (5) Palliative care patient: Patient's life expectancy is few weeks to month. Hospice palliative care is appropriate palliative care consulted after discussing with family members,family do not want any aggressive treatment wants to continue with antibiotic treatment and supportive care for now CODE STATUS : DNR /DNI DVT prophylaxis: High risk for DVT secondary to metastatic malignancy. Not a candidate for pharmacological anticoagulation, not a candidate for SCD and teds given recent DVT. Disposition: Case management consulted to assist in discharge planning Family is hoping to have patient return home with hospice Admission and Anticipated Discharge Date Admission Date: April 25, 2021 Subjective Patient remains very lethargic, ongoing shortness of breath, States that chest pain discomfort has improved No cough no fever or chills present at bedside Physical Exam Physical Exam: Physical exam: General: Acutely ill male, appears to be confused, awake, HEENT: Sclera nonicteric Heart:Irregular, no JVD noted Lungs:Bibasilar Rales, crackles Abdomen: Soft nontender, Extremity: Diffuse petechiae noted on torso, multiple bruises on upper and lower extremity Neuro: Unable to assess as patient found to be very confused, unable to follow instruction Results & Data Results & Data ([facility]) Vital Signs (Past 12 Hours) Vital Signs Temp Pulse Resp BP Pulse Ox 04/26/21 14:49 36.4 C L 64 16 120/82 93 04/26/21 07:30 36.9 C 97 H 16 116/71 90 (1) Metastatic lung cancer (metastasis from lung to other site) Laterality: unspecified laterality Qualified Code(s): C34.90 - Malignant anthony plasm of unspecified part of unspecified bronchus or lung (2) Lower extremity deep venous thrombosis Affected thrombotic vein of extremity: unspecified vein of extremity Chronicity: acute Laterality: unspecified laterality Qualified Code(s): I82.409 - Acute embolism and thrombosis of unspecified deep veins of unspecified lower extremity
[2021-04-26] MEDS: LORazepam 0.5 MG/1 ML VIAL IV PRN (19:44)
[2021-04-27] MEDS: MoRPHine SULFATE 2 MG/ML CARP IV PRN ×4 (02:17→19:30)
[2021-04-27] MEDS: CEFEPIME 2,000 MG in SYRINGE 0 ML IV SCH ×2 (06:00→18:06)
[2021-04-27 07:05] VITALS: TEMP 97.5
[2021-04-27] MEDS: LORazepam 0.5 MG/1 ML VIAL IV PRN ×2 (07:59→21:27)
[2021-04-27] MEDS: LIDOCAINE 5% 1 PATCH TD SCH (08:00)
[2021-04-27] MEDS: FOLIC ACID 1 MG TAB PO SCH (08:04)
[2021-04-27] MEDS: UMECLIDINIUM BROMIDE 62.5MCG/BLISTER 7 PUFFS/INHALER INH SCH (08:04)
[2021-04-27] MEDS: DOCUSATE SODIUM 100 MG CAP PO SCH (08:04)
[2021-04-27 15:17] VITALS: BP 122/80; PULSE 116; O2SAT 93
--- NOTE | 2021-04-27 16:00 | Hospitalist Progress Note ---
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 Pennington hx of pulmonary embolism with saddle emboli- Was on Eliquis, discontinued secondary to thrombocytopenia/anemia/subarachnoid hemorrhage Severe anemia required multiple blood transfusion, On 04/11/2021 MRI of the brain shows possible metastatic brain disease, Lower extremity Doppler showed DVT of the right femoral vein, vascular surgery was consulted but IVC filter was not recommended due to being nidus for future thromboembolic complication has ant chest wall metastatic of lung cancer leading pathologic left rib fracture Overall prognosis remains extremely poor, I had a detail discussion with patient's and daughter,Present at bedside family do not want pt to transfer back to [facility] feels patient may not be able to tolerate any future treatment, wants patient to be comfortable only, family , hoping to have patient return home with hospice Palliative care consult appreciated Post obstructive pneumonia : CT chest shows left main bronchus compression from lung mass, Suggestive of post obstructive pneumonia, Ordered cefepime, overall prognosis remains very poor Dysphagia possible due to above : had esophagogram and speech eval done in [facility] strict NPO as pt is currently obtunded (2) Pancytopenia: Possible secondary to recent chemo treatment, also concern for possible bone marrow metastasis of cancer. Received 2 units of PRBC and 1 and subplatelet transfusion in the ER Extremely poor prognosis, palliative care consulted (3) Stroke due to embolism: Possible embolic stroke history of paroxysmal A. fib, coagulopathy secondary to metastatic malignancy: hx Saddle PE/lower extremity DVT, recent MRI showed possible metastatic liver ration Not a candidate for antiplatelet therapy secondary to Thrombocytopenia, anemia , evidence of mucosal bleeding diffuse petechiae,Recent subarachnoid hemorrhage Prognosis remains guarded (4) Lower extremity deep venous thrombosis: Diagnosed recently at [facility], Not on anticoagulation as explained above, Not a candidate for IVC filter placement comfort care /hospice would be appropariate (5) Palliative care patient: Patient's life expectancy is few weeks to month. Hospice palliative care is appropriate CODE STATUS : DNR /DNI DVT prophylaxis: High risk for DVT secondary to metastatic malignancy. Not a candidate for pharmacological anticoagulation, not a candidate for SCD and teds given recent DVT. Disposition: Case management consulted to assist in discharge planning family hoping to transfer pt to [facility] with hospcie care with current decline is status, it will be appropriate to transition care to hospice /comfort care while in hospital Admission and Anticipated Discharge Date Admission Date: April 25, 2021 Subjective per nursing , pt was experiencing respiratory distress with agitation obtunded , lethargic today , unable to follow command given IV morphine , which help with symptoms seen at bedside , obtunded , appears to be comfortable after IV morphine very poor prognosis family is looking for transfer to [facility] with hospice care it may be prudent to transition pt to hospice /comfort care while in hospital with rapid decline in clinical status Review of Systems Review of Systems: Unobtainable due to cognitive status and Unobtainable due to reduced consciousness Physical Exam Physical Exam: obtunded with labored breathing HEENT : dry oral mucosa Lungs: coarse breathing sound , with bibasilar rales Neuro : obtunded Results & Data Results & Data ([facility]) Vital Signs (Past 12 Hours) Vital Signs Temp Pulse Resp BP Pulse Ox 04/27/21 15:15 116 H 18 122/80 93 04/27/21 06:58 36.4 C L 105 H 16 125/74 90 (1) Metastatic lung cancer (metastasis from lung to other site) Laterality: unspecified laterality Qualified Code(s): C34.90 - Malignant neoplasm of unspecified part of unspecified bronchus or lung (2) Lower extremity deep venous thrombosis Affected thrombotic vein of extremity: unspecified vein of extremity Chronicity: acute Laterality: unspecified laterality Qualified Code(s): I82.409 - Acute embolism and thrombosis of unspecified deep veins of unspecified lower extremity
[2021-04-27] MEDS ORDERED: MoRPHine SULFATE 2 MG/ML CARP IV PRN ×2 (19:41→20:22)
[2021-04-27] MEDS ORDERED: GLYCOPYRROLATE 0.2 MG/ML VIAL IV PRN (20:27)
[2021-04-27] MEDS ORDERED: ACETAMINOPHEN 650 MG SUPP PR PRN (20:27)
--- NOTE | 2021-04-27 20:33 | Communication Note ---
Date of Service: April 27, 2021 spoke with patient's Cony Ewing aware about pt's decline in status wants pt to be comfortable only no lab draw , IV abx D/federica goal of care to provide symptoms control ( pain /SOB /agitation ) with PRN IV morphine , Ativan added IV glycopyrrolate for secretion control currently ordered IV Morphine 2 mg Q1 hrs PRN for air hunger , pain pt appears to be comfortable after last dose if needs frequent dose and still symptoms is not controlled can be transitioned to IV morphine gtt Katarina Kilgore MD
--- NOTE | 2021-04-28 07:35 | Discharge Summary ---
Date of Service April 28, 2021 Admission HPI Per Admitting Provider This is an unfortunate 75-year-old male with significant past medical history of metastatic stage IV non-small cell lung cancer status post right middle lobectomy in 11/02/2020, status post chemo and radiation treatment. 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 fib, COPD, coronary artery disease with prior CA, hypertension, dyslipidemia Patient was admitted to [facility] from 04/11/2021 to 04/24/2021 for subarachnoid hemorrhage, possible metastatic brain lesion, acute left [employer] stroke, pancytopenia, pathological fracture of ribs, [facility] Today during physical therapy evaluation patient found to be severely deconditioned, weak, hypoxic [facility]ital check [facility] showed his BP in low 80s, Patient sent to [facility] ER Patient was found to be hypotensive SBP in 86/50 Anemia hemoglobin in low 7 with thrombocytopenia platelet count 15 diffuse petechiae noted on extremities and torso, No hematuria or melena, no nosebleed Lactic acid level was significantly elevated more than 3 CT head showed subacute left parieto-occipital infarct CTA chest: Enlarging pathologic and mediastinal and hilar lymph nodes, Secondary obstruction of right lower lobe bronchus with presumed postobstructive right lower lobe pneumonia Marked enlargement in a 7.5 cm left chest wall mass with secondary destruction of the left fourth rib this is felt to be neoplastic In the ER patient found to be lethargic, and daughter present at bedside, able to provide most of the information's. No report of fever or chills, extremely poor appetite, generalized weakness and fatigue Principal Diagnosis PATIENT Metastatic lung cancer subacute left parieto-occipital infract pancytopenia due to chemo Discharge Exam Patient , please see the note/pronunciation Discharge Data Allergies Allergy/AdvReac Type Severity Reaction Status Date / Time Penicillins Allergy Unknown HIVES, Verified 11/21/20 13:28 FAINTED bee venom protein (honey bee) Allergy Unknown Unverified 04/25/21 17:27 lisinopril Allergy Unknown Unverified 04/25/21 17:27 Consultations 04/25/21 17:03 ED Decision to Admit Stat 04/25/21 21:10 Consult Palliative Care Routine Consult Palliative Care Routine Ordered Studies 04/25/21 15:40 CT angio chest PE protocol Stat CT head/brain wo con Stat Hospital Course (1) Metastatic lung cancer (metastasis from lung to other site): admitted Elevated Lactic acid /Hypotension /Tachycardia : meets criteria for sepsis : possible source Rt lower lobe post obstructive pneumonia Diagnosed with 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 Pennington hx of pulmonary embolism with saddle emboli- Was on Eliquis, discontinued secondary to thrombocytopenia/anemia/subarachnoid hemorrhage family aware of the prognosis , palliative care involved pt developed respiratory distress on face mask , using resp muscles , remains obtunded spoke with patient's Cony Ewing aware about pt's decline in status wants pt to be comfortable only no lab draw , IV abx D/federica goal of care to provide symptoms control ( pain /SOB /agitation ) with PRN IV morphine , Ativan added IV glycopyrrolate for secretion control currently ordered IV Morphine 2 mg Q1 hrs PRN for air hunger , pain pt appears to be comfortable after last dose if needs frequent dose and still symptoms is not controlled can be transitioned to IV morphine gtt pt while on comfort care (2) Pancytopenia: (3) Stroke due to embolism: (4) Lower extremity deep venous thrombosis: (5) Palliative care patient: CODE STATUS : DNR /DNI patient while on comfort care Total Time Total Time Spent Total Time Spent (In Minutes): Discharge Plan Discharge Items Patient Disposition: Discharge Diagnosis: PATIENT Metastatic lung cancer subacute left parieto-occipital infract pancytopenia due to chemo Addtl Attending Provider Instructions: patient while on comfort care /hospice
== END 2021-04-28 00:39 | disposition expired | DRG 871 ==
LOC: ED 15:17 → 3W 18:42